=== PATIENT | male | born 1980 | race Caucasian/White ===

== ENCOUNTER 2020-06-20 13:32 | Emergency (ER) | payer MEDICARE, MEDICAID, SELFPAY ==
[2020-06-20 13:32] VITALS: BP 123/97; PULSE 181; RESP 18; TEMP 37.8; O2SAT 93
--- NOTE | 2020-06-20 13:35 | XR_ITS ---
WS: [id number] Portable AP supine chest, 06/20/2020 Clinical Data: dyspnea Comparison: Portable chest, 02/18/2015. Findings: No nodules, masses or effusions are seen. The heart is enlarged. The pulmonary vascularity is not increased. No pneumonia or pneumothorax is seen. The patient has had a fusion with bilateral H reinier rods extending from the superior aspect of the thoracic spine into the lumbar spine. There is a dextroscoliosis of the thoracic spine. Monitor leads are on the chest wall. There is an old frac ture of the lateral aspect of the right seventh rib. XR/XR chest 1V portable [id number] Impression: Cardiomegaly. No change in dextroscoliosis and thoracic and upper lumbar spine fusion.
--- NOTE | 2020-06-20 13:36 | ECG_ITS ---
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 Measurements Intervals [place] Rate: 181 P: MA: QRS: 134 QRSD: 86 T: 5 QT: 233 QTc: 404 Interpretive Statements SUPRAVENTRICULAR TACHYCARDIA POSSIBLE RIGHT VENTRICULAR HYPERTROPHY NONSPECIFIC T-WAVE ABNORMALITY CRITICAL TEST RESULT Compared to ECG 02/18/2015 08:08:43 T-wave abnormality now present Sinus rhythm no longer present Incomplete right bundle-branch block no longer present Electronically Signed On 06-20-2020 22:35:30 RURAL ROUTE MAIL CARRIER by Nikki Card M.D. [id number] f
[2020-06-20] MEDS: adenosine 3 mg/mL SDV 2mL 6 MG IVP ×2 (13:39→14:07)
--- NOTE | 2020-06-20 13:51 | CT_ITS ---
WS: [id number] CT CHEST, ABDOMEN AND PELVIS WITH CONTRAST. HISTORY: abdominal pain. aspiration pneumonia TECHNIQUE: Contiguous 5 mm axial imaging performed through the chest, abdomen and pelvis with IV cont rast, oral contrast has been provided. Coronal and sagittal reformats chest. Coronal and sagittal ref ormats through the abdomen and pelvis. All CT scans at [facility] use at least one of the se dose optimization techniques: automated exposure control; mA and/or kV adjustment per patient size (includes targeted exams where dose is matched to clinical indication); or iterative reconstruction. CONTRAST: Omnipaque 300; 95 mL IV. DLP: 2142.52 mGy.cm COMPARISON: None available. Quality of this examination is significantly limited by motion and rotation. Chest CT: Dependent changes in the lung bases. Small amount of pneumonitis cannot be excluded. No lar ge pleural effusions. Heart size may be slightly enlarged. Thoracic aorta appears normal size. Fluid- filled esophagus may be due to reflux disease. There are extensive Albright rods extending throughout the thoracic and portions of the lumbar spin e. Abdomen CT: Significant amount of artifact from the hardware. There is a small amount of pneumobilia. May be related to the prior cholecystectomy. Mild atrophy of the pancreas and kidneys. No adenopathy . Marked distention of the colon with air. This is consistent with an old pelves. There is marked fecal retention and obstipation. I cannot exclude free air with this amount of motion artifact. Pelvic CT: No obvious free fluid in the pelvis. Urinary bladder is distended. Inguinal canals are pat ent bilaterally. There is a loop of probably colon extending into the LEFT proximal inguinal canal. N o obstruction. CT/CT chest abd pel w con* IMPRESSION: 1. Quality of this examination is significantly limited. Nearly nondiagnostic evaluation. 2. Marked obstipation and findings suggestive of [place]'s syndrome. Fecal imp action with inspissated fecal material at the rectum. 3. Pneumobilia is probably related to the prior cholecystectomy. 4. Mild pneumonitis at the lung bases. No pneumonia. 5. Fluid-filled esophagus is probably from reflux disease.
[2020-06-20 14:00] LABS: Basophils % 0.4 %; Eosinophils # 0.1 10^3/uL (0.0-0.8); Eosinophils % 1.1 %; Hematocrit 40.6 % (42.0-52.0); Hemoglobin 12.5 g/dL (11.7-16.6); Lymphocytes # 1.1 10^3/uL (0.8-4.8); Lymphocytes % 11.3 %; Mean Corpuscular HGB Conc 30.8 g/dL (30.0-36.0); Mean Corpuscular Hemoglobin 25.2 pg (28.0-34.0); Mean Corpuscular Volume 81.9 fL (80-94); Mean Platelet Volume 10.8 fL (7.4-10.4); Monocytes % 11.1 %; Neutrophils # 7.11 10^3/uL (1.8-7.7); Neutrophils % 75.6 %; Nucleated Red Blood Cells % 0 %; Platelet Count 320 10^3/cmm (130-400); Red Blood Count 4.96 10^6/uL (4.1-5.3); Red Cell Distribution Width 17.1 % (12.1-15.1); White Blood Count 9.4 10^3/uL (4.0-10.0)
--- NOTE | 2020-06-20 14:02 | CT_ITS ---
WS: [id number] CT HEAD NONCONTRAST HISTORY: altered mental status TECHNIQUE: Contiguous axial imaging performed through the brain in 2.5 mm imaging. Bone and soft tiss ue windows. Sagittal and coronal reformats reviewed. All CT scans at [facility] use at ast one of these dose optimization techniques: automated exposure control; mA and/or kV adjustment pe r patient size (includes targeted exams where dose is matched to clinical indication); or iterative r econstruction. DLP: 3956.43 mGy.cm COMPARISON: None available. Limited by motion artifact. No areas of hemorrhage or mass effect. Mild bilateral frontotemporal atro phy. No large infarct. Ventricles: Normal size with no hydrocephalus. Paranasal sinuses: As visualized are clear. Mastoid air cells: Well pneumatized. Calvarium and scalp: Skull is intact with no soft tissue edema or swelling. CT/CT head wo con* [id number] IMPRESSION: 1. Quality of this examination is limited. No significant areas of hemorrhage or mass effect. 2. Mild frontotemporal lobe atrophy.
[2020-06-20 14:07] LABS: ABG PCO2 34.7 mmHg (35-45); ABG PH Result 7.41 (7.35-7.45); Arterial Blood Gas Hematocrit 36.1 % (42-52); Blood Gas Allen Test Pos; Blood Gas Operator Identificat AMH; Blood Gas Sample Site Radial, right; Blood Gas Sample Type Arterial; Carboxyhemoglobin 1.3 %THgb (0.4-20.1); HCO3 ABG 22.1 mmol/L (22-26); HGB O2 Sat 93.7 % (95-100); Methemoglobin 0.8 % (0.4-1.5); Oxygen Device ROOM AIR; PO2 ABG 77.8 mmHg (80.0-100.0); Total Hemoglobin 11.8 g/dL (14-18)
[2020-06-20] MEDS: sodium chloride 0.9% 1,000 ML 999 ML IV (14:08)
[2020-06-20 14:10] LABS: D Dimer 0.56 ug/mIFEU (0-0.59)
[2020-06-20] MEDS: adenosine 3 mg/mL SDV 2mL 12 MG IVP (14:16)
[2020-06-20 14:20] LABS: Troponin(5th) Baseline 29 ng/L (0-15)
[2020-06-20 14:29] LABS: Alanine Aminotransferase 13 U/L (0-41); Albumin Level 4.5 g/dL (3.5-5.2); Alkaline Phosphatase 111 IU/L (40-130); Anion Gap 15.6 (5-19); Aspartate Amino Transferase 16 U/L (0-40); Blood Urea Nitrogen 14 mg/dL (6-20); Calcium 9.5 mg/dL (8.5-10.5); Carbon Dioxide 23 mmol/L (22-29); Chloride 99 mmol/L (98-107); Globulin 2.9 g/dL (1.3-4.6); Glomerular Filtration Rate 106.5 mL/min (90-130); Glucose 131 mg/dL (65-115); NT Pro B Type Natriuretic Pept 193 pg/mL (0-125); Osmolality Calculated 278 mOsm/kg (285-295); Potassium 4.6 mmol/L (3.5-5.1); Sodium 133 mmol/L (136-145); Total Bilirubin 1.2 mg/dL (0.15-1.2); Total Protein 7.4 g/dL (6.6-8.7)
[2020-06-20 14:37] LABS: Lactate (Lactic Acid level) 2.8 mmol/L (0.5-2.2)
[2020-06-20] MEDS: LORazepam 2 mg/mL INJ 1 mL 0.5 MG IVP (14:40)
[2020-06-20] MEDS: iohexol 300 mg/mL 100 mL Btl IV (15:04)
--- NOTE | 2020-06-20 15:08 | ECG_ITS ---
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 Measurements Intervals [place] Rate: 124 P: 35 PA: 142 QRS: 136 QRSD: 71 T: 4 QT: 304 QTc: 437 Interpretive Statements SINUS TACHYCARDIA WITH FREQUENT VENTRICULAR PREMATURE COMPLEXES WITH OCCASIONAL SUPRAVENTRICULAR PREMATURE COMPLEXES PATTERN CONSISTENT WITH PULMONARY DISEASE POSSIBLE RIGHT VENTRICULAR HYPERTROPHY [SOME/ALL OF: PROMINENT R IN V1, LATE TRANSITION, RAD, LANDY, SSS] Compared to ECG 06/20/2020 13:33:48 Ventricular premature complex(es) now present Atrial fibrillation no longer present T-wave abnormality no longer present Electronically Signed On 06-20-2020 22:37:28 BRAILLE TEACHER by Nikki Card M.D. [id number] f
[2020-06-20] MEDS: vancomycin 1,000 MG in sodium chloride 0.9% 250 ML 250 MG IV (15:35)
--- NOTE | 2020-06-20 15:36 | ECG_ITS ---
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 Measurements Intervals [place] Rate: 178 P: RI: QRS: 138 QRSD: 76 T: 7 QT: 252 QTc: 434 Interpretive Statements SUPRAVENTRICULAR TACHYCARDIA POSSIBLE RIGHT VENTRICULAR HYPERTROPHY MINIMAL ST DEPRESSION [0.025+ mV ST DEPRESSION] CRITICAL TEST RESULT Compared to ECG 06/20/2020 13:38:55 ST (T wave) deviation now present Sinus tachycardia no longer present Ventricular premature complex(es) no longer present Electronically Signed On 06-20-2020 22:06:42 BOILER OR ENGINE OPERATOR by Nikki Card M.D. [id number]
--- NOTE | 2020-06-20 15:46 | W.ED.ARRPALP ---
HPI - Arrhythmia/Palpitations General: Chief Complaint: Arrhythmia/Palpitations Stated Complaint: WEAKNESS/ SVT Time Seen by Provider: 06/20/20 13:35 History of Present Illness: HPI narrative: The patient is a 39-year-old [place] with past medical history neurologic disease and atrial fibrillation on Xarelto. He comes to the ER after he was sent here for responding last. EMS found him to be in SVT with a rate of 180. Also a distended abdomen. He has chronic severe constipation and they gave him a laxative at the penitentiary with no effect. The patient offers no history as he is a poor historian and does not communicate with with his neurologic disease. Review of Systems General: Reports: ROS unobtainable due to mental status Physical Exam Const: COMMON NORMALS: alert EXAM LIMITATIONS: altered mental status, language barrier and physical limitations GENERAL APPEARANCE: in distress and ill appearing ORIENTATION/CONSCIOUSNESS: Yes awake HENMT: COMMON NORMALS: normocephalic, external ears normal and Normal external nose present HEAD & SCALP: normal to inspection and normocephalic NOSE: Normal external nose present EXTERNAL EAR: Yes external ears normal MOUTH: Normal oral and palatal mucosa present THROAT: posterior oropharynx normal Eye: COMMON NORMALS: Equal, round and reactive pupils present and EOMs intact bilaterally GENERAL EYE: appearance normal, both eyes and all related structures PUPIL: Yes Equal, round and reactive pupils present Neck/C-Spine: COMMON NORMALS: full ROM, no lymphadenopathy, no meningeal signs and no JVD GENERAL: Yes normal visual inspection Lymph: LYMPHATIC: no lymphadenopathy noted Chest: COMMONS NORMALS: normal inspection of the chest and normal palpation of entire chest wall Resp: COMMON NORMALS: normal respiratory effort, No retractions, No use of accessory muscles, clear to auscultation bilaterally and percussion normal EFFORT & INSPECTION: Yes able to speak in complete sentences AUSCULTATION: clear to auscultation bilaterally PERCUSSION: percussion normal Cardio: COMMON NORMALS: no JVD, regular rate, regular rhythm, S1 normal heart sound present, S2 normal heart sound present and Peripheral pulses 2+ throughout RATE: regular rate RHYTHM: regular rhythm HEART SOUNDS: S1 normal heart sound present and S2 normal heart sound present PERIPHERAL PULSES: Peripheral pulses 2+ throughout GI: OTHER: Abdomen grossly distended likely from gas. Hollow sounding with percussion. Difficult to auscultate bowel sounds with the ER noises. Grossly tender in all luque. : COMMON NORMALS: Yes no CVA tenderness BLADDER/KIDNEY EXAM: Yes no CVA tenderness Back/Pelvis: COMMON NORMALS: no CVA tenderness, thoracic and lumbar spine normal to inspection, no thoracic nor lumbar tenderness and thoraco-lumbar ROM normal Extremity: NARRATIVE EXTREMITY EXAM: Chronically contracted extremities. Moves all 4 extremities. Sensation intact in all 4. Neuro: COMMON NORMALS: moves all extremities SENSORIUM/ORIENTATION: Yes alert MENINGEAL SIGNS: Yes no meningeal signs OTHER: Chronic baseline mental disease. His power of civil litigation attorney says he is able to communicate with her. Skin: COMMON NORMALS: no rashes or lesions noted GENERAL SKIN EXAM: no rashes or lesions noted Course Vital Signs: Vital signs: Vital Signs Temperature 100.1 F H 06/20/20 13:32 Pulse Rate 181 H 06/20/20 13:32 Respiratory Rate 18 06/20/20 13:32 Blood Pressure 123/97 06/20/20 13:32 Pulse Oximetry 93 06/20/20 13:32 MDM - Arrhythmia/Palpitations MDM Narrative: Medical decision making narrative: This is a sick patient who comes to the ER in SVT. He was given 6, 6 and 12 mg of adenosine and he did convert however within minutes he was back in. Sometimes he kicks himself out of SVT. Discussed with Dr. Ceballos who recommended starting a Cardizem drip as he does have a history of A. fib. The bolus was given and his heart rate did slow to the 140s to 160s for a short time and it did appear A. fib. It is likely he is suffering from A. fib with RVR versus SVT. He does not want him cardioverted unless his systolic blood pressure drops below 90 because of the risk of throwing a clot. We do not have any ICU beds available here. Discussed with Dr. Pradhan ER physician at [facility] who accepts. Patient to be flown there Lab Data: Labs: Lab Results 06/20/20 06/20/20 06/20/20 Range/Units 13:52 13:52 13:52 WBC 9.4 (4.0-10.0) 10^3/ uL RBC 4.96 (4.1-5.3) 10^6/u L Hgb 12.5 (11.7-16.6) g/dL Hct 40.6 L (42.0-52.0) % MCV 81.9 (80-94) fL MCH 25.2 L (28.0-34.0) pg MCHC 30.8 (30.0-36.0) g/dL RDW 17.1 H (12.1-15.1) % Plt Count 320 (130-400) 10^3/c mm MPV 10.8 H (7.4-10.4) fL Neut % (Auto) 75.6 % Lymph % (Auto) 11.3 % [place] % (Auto) 11.1 % Eos % (Auto) 1.1 % Baso % (Auto) 0.4 % Neut # (Auto) 7.11 (1.8-7.7) 10^3/u L Lymph # (Auto) 1.1 (0.8-4.8) 10^3/u L [place] # (Auto) 1.0 H (0.2-0.9) 10^3/u L Eos # (Auto) 0.1 (0.0-0.8) 10^3/u L Baso # (Auto) 0.0 (0.0-0.1) 10^3/u L Nucleated RBC % (a uto) 0 % Nucleated RBCs # 0.0 /100WBC D-Dimer 0.56 (0-0.59) ug/mIFE U Specimen Type Sample Site ABG pH (7.35-7.45) ABG pCO2 (35-45) mmHg ABG pO2 (80.0-100.0) mmH g ABG HCO3 (22-26) mmol/L ABG Base Excess (-2.0-2.0) mmol/ L Aureliano Test Hematocrit (42-52) % Hgb O2 Saturation (95-100) % Carboxyhemoglobin (0.4-20.1) %THgb Methemoglobin (0.4-1.5) % Total Hemoglobin (14-18) g/dL O2 Delivery Device FiO2 % Special Education Preschool Teacher ID Sodium 133 L (136-145) mmol/L Potassium 4.6 (3.5-5.1) mmol/L Chloride 99 (98-107) mmol/L Carbon Dioxide 23 (22-29) mmol/L Anion Gap 15.6 (5-19) BUN 14 (6-20) mg/dL Creatinine 0.8 (0.7-1.2) mg/dL GFR Calculation 106.5 (90-130) mL/min Glucose 131 H (65-115) mg/dL Calculated Osmolal ity 278 L (285-295) mOsm/k g Lactate (0.5-2.2) mmol/L Calcium 9.5 (8.5-10.5) mg/dL Total Bilirubin 1.2 (0.15-1.2) mg/dL AST 16 (0-40) U/L ALT 13 (0-41) U/L Alkaline Phosphata se 111 (40-130) IU/L Troponin T Baselin e (0-15) ng/L NT-Pro-B Natriuret Pep 193 H (0-125) pg/mL Total Protein 7.4 (6.6-8.7) g/dL Albumin 4.5 (3.5-5.2) g/dL Globulin 2.9 (1.3-4.6) g/dL 06/20/20 06/20/20 06/20/20 Range/Units 13:52 13:52 13:56 WBC (4.0-10.0) 10^3/ uL RBC (4.1-5.3) 10^6/u L Hgb (11.7-16.6) g/dL Hct (42.0-52.0) % MCV (80-94) fL MCH (28.0-34.0) pg MCHC (30.0-36.0) g/dL RDW (12.1-15.1) % Plt Count (130-400) 10^3/c mm MPV (7.4-10.4) fL Neut % (Auto) % Lymph % (Auto) % [place] % (Auto) % Eos % (Auto) % Baso % (Auto) % Neut # (Auto) (1.8-7.7) 10^3/u L Lymph # (Auto) (0.8-4.8) 10^3/u L [place] # (Auto) (0.2-0.9) 10^3/u L Eos # (Auto) (0.0-0.8) 10^3/u L Baso # (Auto) (0.0-0.1) 10^3/u L Nucleated RBC % (a uto) % Nucleated RBCs # /100WBC D-Dimer (0-0.59) ug/mIFE U Specimen Type Arterial Sample Site Radial, right ABG pH 7.41 (7.35-7.45) ABG pCO2 34.7 L (35-45) mmHg ABG pO2 77.8 L (80.0-100.0) mmH g ABG HCO3 22.1 (22-26) mmol/L ABG Base Excess -2.0 (-2.0-2.0) mmol/ L Aureliano Test Pos Hematocrit 36.1 L (42-52) % Hgb O2 Saturation 93.7 L (95-100) % Carboxyhemoglobin 1.3 (0.4-20.1) %THgb Methemoglobin 0.8 (0.4-1.5) % Total Hemoglobin 11.8 L (14-18) g/dL O2 Delivery Device Room air FiO2 21.0 % Special Education Preschool Teacher ID Amh Sodium (136-145) mmol/L Potassium (3.5-5.1) mmol/L Chloride (98-107) mmol/L Carbon Dioxide (22-29) mmol/L Anion Gap (5-19) BUN (6-20) mg/dL Creatinine (0.7-1.2) mg/dL GFR Calculation (90-130) mL/min Glucose (65-115) mg/dL Calculated Osmolal ity (285-295) mOsm/k g Lactate 2.8 H (0.5-2.2) mmol/L Calcium (8.5-10.5) mg/dL Total Bilirubin (0.15-1.2) mg/dL AST (0-40) U/L ALT (0-41) U/L Alkaline Phosphata se (40-130) IU/L Troponin T Baselin e 29 H (0-15) ng/L NT-Pro-B Natriuret Pep (0-125) pg/mL Total Protein (6.6-8.7) g/dL Albumin (3.5-5.2) g/dL Globulin (1.3-4.6) g/dL Discharge Plan Discharge Patient Disposition: Xfer Other Clinical Impression: Supraventricular tachycardia, Atrial fibrillation Condition: Critical Referrals: Akbar Pérez DO [Primary Care Provider] - Coding Level of Care Code ED Washing Machine Striper for Jose Coates
[2020-06-20 15:48] LABS: Blood Urine Neg (Negative); Glucose Urine UA Norm (Normal); Ketones Urine Negative (Negative); Nitrate Urine Negative (Negative); Protein Urine Neg (Negative); Specific Gravity, Urine 1.015 (1.005-1.030); Urine Appearance Hazy (CLEAR); Urine Color Dark Yellow (Yellow); Urobilinogen Urine 1 mg/dL (Negative); pH Urine 7 (5-7)
[2020-06-20 15:49] LABS: Add Urine Microscopic? YES; Bilirubin Urine 1+ (Negative); Leukocyte Esterase Urine Negative (Negative)
[2020-06-20 16:00] LABS: Bacteria Urine TRACE /hpf; RBC Urine 0-4 /hpf (0-2); Squamous Epithelial Cell Urine 0-4 /hpf (0-5)
[2020-06-20 16:01] LABS: Add Urine Culture? No; Mucus Urine 3+ /hpf
[2020-06-20] MEDS: LORazepam 2 mg/mL INJ 1 mL 1 MG IVP (16:03)
[2020-06-20 17:19] VITALS: BP 113/84; PULSE 174; RESP 20; O2SAT 92
== END 2020-06-20 17:21 | disposition other institution (70) ==
PROVIDERS: Emergency Provider Family Medicine; PCP Internal Medicine
DX: I47.1 Supraventricular tachycardia (principal); I48.91 Unspecified atrial fibrillation
CPT/HCPCS: 36415; 36600; 70450; 71045; 71260; 74177; 80053; 81001; 82805; 83605; 83880; 84484; 85025; 85378; 87040; 87205; 93005; 96365; 96366; 96367; 96375; 96376; 99285; J0153; J2060; J3370; J3490; J7030; J7050; Q9967

== ENCOUNTER 2020-07-10 21:35 | Emergency (ER) | payer MEDICARE, MEDICAID, SELFPAY ==
[2020-07-10 21:36] VITALS: BP 117/90; PULSE 114; RESP 18; TEMP 36.4; O2SAT 94; BMI 23.1
[2020-07-10 22:11] LABS: Basophils % 0.3 %; Hematocrit 42.3 % (42.0-52.0); Lymphocytes # 0.5 10^3/uL (0.8-4.8); Lymphocytes % 3.7 %; Mean Corpuscular HGB Conc 28.4 g/dL (30.0-36.0); Mean Corpuscular Hemoglobin 25.4 pg (28.0-34.0); Mean Corpuscular Volume 89.6 fL (80-94); Mean Platelet Volume 11.1 fL (7.4-10.4); Monocytes # 0.7 10^3/uL (0.2-0.9); Monocytes % 4.6 %; Neutrophils # 13.15 10^3/uL (1.8-7.7); Neutrophils % 90.9 %; Nucleated Red Blood Cells % 0 %; Platelet Count 389 10^3/cmm (130-400); Red Blood Count 4.72 10^6/uL (4.1-5.3); Red Cell Distribution Width 18.4 % (12.1-15.1); White Blood Count 14.5 10^3/uL (4.0-10.0)
[2020-07-10] MEDS: sodium chloride 0.9% 1,000 ML 999 ML IV (22:15)
[2020-07-10] MEDS: ondansetron 2 mg/ML SDV 2 mL 4 MG IVP (22:17)
[2020-07-10 22:18] VITALS: BP 107/74; PULSE 86; RESP 19; O2SAT 92
[2020-07-10 22:24] LABS: Alanine Aminotransferase 9 U/L (0-41); Albumin Level 4.5 g/dL (3.5-5.2); Alkaline Phosphatase 108 IU/L (40-130); Anion Gap 23.3 (5-19); Aspartate Amino Transferase 19 U/L (0-40); Blood Urea Nitrogen 27 mg/dL (6-20); Calcium 9.4 mg/dL (8.5-10.5); Carbon Dioxide 16 mmol/L (22-29); Chloride 102 mmol/L (98-107); Globulin 3.5 g/dL (1.3-4.6); Glomerular Filtration Rate 73.8 mL/min (90-130); Glucose 118 mg/dL (65-115); Lipase 13 U/L (13-60); Magnesium 1.9 mg/dL (1.7-2.3); Osmolality Calculated 290 mOsm/kg (285-295); Potassium 4.3 mmol/L (3.5-5.1); Sodium 137 mmol/L (136-145); Total Bilirubin 1.3 mg/dL (0.15-1.2)
--- NOTE | 2020-07-10 22:29 | W.ED.NAVMDI ---
HPI - Nausea/Vomiting/Diarrhea General: Chief complaint: Nausea/Vomiting/Diarrhea Stated complaint: gi bleed Time Seen by Provider: 07/10/20 21:44 Source: family and other (care home) Mode of arrival: EMS Limitations: altered mental status and physical limitation History of Present Illness: HPI Narrative: 39 yo male resident of local care home. Per care home patient had N/V yesterday and also this evening. Possibly with coffee ground emesis. He john has chronic constipation. MD elicited complaint: nausea and vomiting Pertinent past history: bowel obstruction (1 month ago) Onset (ago): day(s) (yesterday and today) Description of vomiting: coffee grounds Associated nausea: Yes Location of pain: Other (patient not able to specify) Severity: similar to previous episodes Quality: other (patient not able to specify) Exacerbating factors: eating Relieving factors: none Context: anticoagulant use (on xarelto 20 mg daily) Associated symtoms: Reports altered mental status and nausea Treatment prior to arrival: none Review of Systems General: Reports: ROS unobtainable due to mental status and Other (records review, sister provides information) Const: Denies: fever(s), chills, change in appetite or change in weight Card: Reports: irregular heart rhythm (hx of irregular heart rate) Resp: Denies: dyspnea, productive cough or wheezing GI: Reports: abdominal pain (patient not able to specify), nausea, vomiting, coffee ground emesis and constipation Neuro: Reports: Slurred speech present and difficulty communicating thoughts Physical Exam Narrative: EXAM NARRATIVE: 39 yo male care home patient brought in by EMS. Const: COMMON NORMALS: no acute distress; negative for patient oriented x3, limitations, negative for healthy appearing, negative for alert and negative for well nourished EXAM LIMITATIONS: altered mental status and physical limitations GENERAL APPEARANCE: comfortable and frail appearing; not well developed and not in distress ORIENTATION/CONSCIOUSNESS: Yes Other orientation findings (patient not able to specify) HENMT: COMMON NORMALS: atraumatic; oral mucous membranes not moist (oral mucosa mildly dry) HEAD & SCALP: normal to inspection and atraumatic MOUTH: Normal oral and palatal mucosa present, tongue normal and moist mucous membranes abnormal (dry) Eye: COMMON NORMALS: Equal, round and reactive pupils present and EOMs intact bilaterally PUPIL: Yes Equal, round and reactive pupils present Neck/C-Spine: COMMON NORMALS: supple and no meningeal signs GENERAL: Yes normal visual inspection and Yes trachea midline CERVICAL SPINE: Yes cervical ROM normal, No normal cervical lordosis and No pain with cervical ROM Chest: COMMONS NORMALS: normal inspection of the chest and normal palpation of entire chest wall CHEST: Yes Symmetrical chest wall rise Resp: COMMON NORMALS: No retractions, No use of accessory muscles and clear to auscultation bilaterally; negative for normal respiratory effort (poor respiratory effort) EFFORT & INSPECTION: Yes symmetric chest movement, No respiratory distress, Yes decreased respiratory effort, No labored, No grunting, No stridor, No Actively coughing, No retractions, No uses accessory muscles and No audible wheezes AUSCULTATION: clear to auscultation bilaterally Cardio: COMMON NORMALS: regular rate and regular rhythm RATE: regular rate RHYTHM: regular rhythm GI: COMMON NORMALS: Soft to palpation and No hepatosplenomegaly present; negative for non-tender INSPECTION: No Fluid wave present AUSCULTATION: Yes Hypoactive bowel sounds present PALPATION: Yes Soft to palpation, Yes Tenderness to palpation present (GI) Details: LLQ and RLQ, Yes No hepatosplenomegaly present, No Pulsatile mass present, No Ascites present and No Rebound tenderness present PERCUSSION: dullness to percussion and no fluid wave Extremity: COMMON NORMALS: no calf tenderness Neuro: WILMER COMA SCALE: GCS not evaluated COMMON NORMALS: negative for patient oriented x3 SENSORIUM/ORIENTATION: No alert MENINGEAL SIGNS: Yes no meningeal signs and No nuccal rigidity SPEECH: abnormal speech GAIT: Yes Unable to assess gait Skin: COMMON NORMALS: no rashes or lesions noted and turgor normal GENERAL SKIN EXAM: no rashes or lesions noted, elasticity normal, turgor normal, no ecchymo, no erythema and no eschars TRAUMA: no lacerations or abrasions HAIR: normal Course Vital Signs: Vital signs: Vital Signs Temperature 97.5 F L 07/10/20 21:36 Pulse Rate 97 07/11/20 01:53 Respiratory Rate 16 07/11/20 00:13 Blood Pressure 101/76 07/11/20 00:13 Pulse Oximetry 94 07/11/20 01:53 MDM - Nausea/Vomiting/Diarrhea Lab Data: Labs: Lab Results 07/10/20 07/10/20 Range/Units 21:54 21:54 WBC 14.5 H (4.0-10.0) 10^3/ uL RBC 4.72 (4.1-5.3) 10^6/u L Hgb 12.0 (11.7-16.6) g/dL Hct 42.3 (42.0-52.0) % MCV 89.6 (80-94) fL MCH 25.4 L (28.0-34.0) pg MCHC 28.4 L (30.0-36.0) g/dL RDW 18.4 H (12.1-15.1) % Plt Count 389 (130-400) 10^3/c mm MPV 11.1 H (7.4-10.4) fL Neut % (Auto) 90.9 % Lymph % (Auto) 3.7 % [place] % (Auto) 4.6 % Eos % (Auto) 0.0 % Baso % (Auto) 0.3 % Neut # (Auto) 13.15 H (1.8-7.7) 10^3/u L Lymph # (Auto) 0.5 L (0.8-4.8) 10^3/u L [place] # (Auto) 0.7 (0.2-0.9) 10^3/u L Eos # (Auto) 0.0 (0.0-0.8) 10^3/u L Baso # (Auto) 0.0 (0.0-0.1) 10^3/u L Nucleated RBC % (a uto) 0 % Nucleated RBCs # 0.0 /100WBC Sodium 137 (136-145) mmol/L Potassium 4.3 (3.5-5.1) mmol/L Chloride 102 (98-107) mmol/L Carbon Dioxide 16 L (22-29) mmol/L Anion Gap 23.3 H (5-19) BUN 27 H (6-20) mg/dL Creatinine 1.1 (0.7-1.2) mg/dL GFR Calculation 73.8 L (90-130) mL/min Glucose 118 H (65-115) mg/dL Calculated Osmolal ity 290 (285-295) mOsm/k g Calcium 9.4 (8.5-10.5) mg/dL Magnesium 1.9 (1.7-2.3) mg/dL Total Bilirubin 1.3 H (0.15-1.2) mg/dL AST 19 (0-40) U/L ALT 9 (0-41) U/L Alkaline Phosphata se 108 (40-130) IU/L Total Protein 8.0 (6.6-8.7) g/dL Albumin 4.5 (3.5-5.2) g/dL Globulin 3.5 (1.3-4.6) g/dL Lipase 13 (13-60) U/L Discharge Plan Discharge Patient Disposition: Home Clinical Impression: Dehydration, Fecal impaction in rectum Nausea & vomiting Qualifiers: Vomiting type: unspecified Vomiting Intractability: unspecified Qualified Code(s): R11.2 - Nausea with vomiting, unspecified Condition: Stable Prescriptions: New Miralax 17 gram/dose powder 17 g PO DAILY 10 Days Qty: 850 RF: 0 ondansetron 4 mg tablet,disintegrating 4 mg PO Q6H PRN (Reason: nausea and vomiting) Qty: 10 RF: 0 No Action acetaminophen 325 mg Tablet 650 mg PO Q4H PRN (Reason: Pain) RF: 0 propylthiouracil 50 mg Tablet 50 mg PO TID RF: 0 olanzapine 5 mg Tablet 5 mg PO BEDTIME RF: 0 lorazepam 0.5 mg Tablet 0.5 mg PO Q4H PRN (Reason: Anxiety) RF: 0 Milk of Magnesia 400 mg/5 mL Suspension 30 ml PO DAILY PRN (Reason: Constipation) RF: 0 baclofen 10 mg Tablet 10 mg PO Q8H PRN (Reason: Muscle Pain) RF: 0 bisacodyl 10 mg Suppository 10 mg IN DAILY PRN (Reason: Constipation) RF: 0 metoprolol tartrate 50 mg Tablet 50 mg PO Q12H RF: 0 Fleet Enema 19-7 gram/118 mL Enema 118 ml IN DAILY PRN (Reason: Constipation) RF: 0 gabapentin 300 mg Capsule 300 mg PO BID RF: 0 omeprazole 20 mg Capsule,Delayed Release(Dr/Ec) 20 mg PO DAILY RF: 0 aspirin 81 mg Tablet,Chewable 81 mg PO DAILY RF: 0 nystatin 100,000 unit/gram Powder 1 applic TOPICAL BID RF: 0 albuterol sulfate 90 mcg/actuation Hfa Aerosol Inhaler 1 puff INHALATION Q4H PRN (Reason: Shortness Of Breath) RF: 0 Zyprexa 20 mg Tablet 20 mg PO BEDTIME RF: 0 Xarelto 20 mg Tablet 20 mg PO DAILY RF: 0 Discharge Orders: Discharge ED (Routine); Ordered 07/11/20 Ordered By: Lance Vidal Referrals: Akbar Pérez DO [Primary Care Provider] - Discharge Diet: Usual diet Discharge Activity: Resume usual activity Patient Instructions: Opioid Safety Activity Restrictions/Additional Instructions: increase fluids Coding Level of Care Code ED Plasma Table Operator for Chg Fwd Exam Comprehensive
--- NOTE | 2020-07-10 23:10 | CTR_ITS ---
PROCEDURE INFORMATION: Exam: CT Abdomen And Pelvis With Contrast Exam date and time: 07/10/2020 11:27 PM Age: 39 years old Clinical indication: Abdominal pain; Generalized; Prior surgery; Surgery type: Albright luke. Gb. ; Patient HX: Abd pain with gi bleed. History of ms. TECHNIQUE: Imaging protocol: Computed tomography of the abdomen and pelvis with contrast. Radiation optimization: All CT scans at this facility use at least one of these dose optimization techniques: automated exposure control; mA and/or kV adjustment per patient size (includes targeted exams where dose is matched to clinical indication); or iterative reconstruction. Contrast material: OMNI 300; Contrast volume: 95 ml; Contrast route: INTRAVENOUS (IV); COMPARISON: CT chest abd pel w con* 06/20/2020 3:01 PM RADIATION DOSE METRICS: Total DLP (mGy-cm): 1258.82 FINDINGS: Liver: Normal. No mass. Gallbladder and bile ducts: Cholecystectomy. No dilation of biliary system. Pneumobilia. Pancreas: Normal. No ductal dilation. Spleen: Normal. No splenomegaly. Adrenal glands: Normal. No mass. Kidneys and ureters: Normal. No hydronephrosis. Stomach and bowel: Large stool ball in the rectum. Rectal dilation up to 8.5 cm. No significant change from prior. No inflammatory bowel wall thickening. Negative for pneumatosis intestinalis. Small bowel loops are nondilated. Appendix: No evidence of appendicitis. Intraperitoneal space: No intraperitoneal fluid collection. Vasculature: Mesenteric vasculature is patent. Lymph nodes: Unremarkable. No enlarged lymph nodes. Urinary bladder: Unremarkable as visualized. Reproductive: Unremarkable as visualized. Bones/joints: Smooth rightward convex scoliosis of the thoracolumbar spine. Extensive thoracolumbar spine fusion changes. No acute osseous abnormality. No change in bones from recent prior. Soft tissues: No active abdominopelvic bleeding seen. CT/CT abdomen pelvis w con* [id number] IMPRESSION: 1. No acute pathology in the abdomen or pelvis identified. No active bleeding seen. 2. Fecal impaction of the rectum. Radiation Dose CTDIVOL = (mGy): DLP = 1258.82 (mGy-cm)
[2020-07-11 00:13] VITALS: BP 101/76; PULSE 101; RESP 16; O2SAT 97
[2020-07-11 01:53] VITALS: PULSE 97; O2SAT 94
[2020-07-11 05:59] VITALS: BP 115/63; PULSE 99; RESP 18; O2SAT 95
== END 2020-07-11 08:12 | disposition home or self-care (01) ==
PROVIDERS: Emergency Provider Emergency Medicine; PCP Internal Medicine
DX: R11.2 Nausea with vomiting, unspecified (principal); K56.41 Fecal impaction; E86.0 Dehydration; Z79.82 Long term (current) use of aspirin
CPT/HCPCS: 74177; 80053; 83690; 83735; 85025; 96361; 96374; 99283; J2405; J7030; Q9967

== ENCOUNTER 2020-07-11 15:46 | Outpatient (CLI) | payer MEDICARE, MEDICAID, SELFPAY ==
[2020-07-11 16:11] LABS: Basophils % 0.2 %; Hematocrit 36.7 % (42.0-52.0); Hemoglobin 11.1 g/dL (11.7-16.6); Lymphocytes # 1.5 10^3/uL (0.8-4.8); Lymphocytes % 16.1 %; Mean Corpuscular HGB Conc 30.2 g/dL (30.0-36.0); Mean Corpuscular Hemoglobin 25.5 pg (28.0-34.0); Mean Corpuscular Volume 84.2 fL (80-94); Mean Platelet Volume 11.3 fL (7.4-10.4); Monocytes # 0.9 10^3/uL (0.2-0.9); Monocytes % 9.3 %; Neutrophils # 7.01 10^3/uL (1.8-7.7); Neutrophils % 74.1 %; Nucleated Red Blood Cells % 0 %; Platelet Count 408 10^3/cmm (130-400); Red Blood Count 4.36 10^6/uL (4.1-5.3); Red Cell Distribution Width 18.4 % (12.1-15.1); White Blood Count 9.5 10^3/uL (4.0-10.0)
== END 2020-07-11 15:47 | disposition home or self-care (01) ==
PROVIDERS: PCP Internal Medicine; Visit Provider Internal Medicine
DX: D72.829 Elevated white blood cell count, unspecified (principal)
CPT/HCPCS: 85025

== ENCOUNTER 2021-02-19 18:41 | Emergency (ER) | payer MEDICARE, MEDICAID, SELFPAY ==
[2021-02-19 18:41] VITALS: BP 110/73; PULSE 66; RESP 15; TEMP 36.7; O2SAT 96; BMI 17.7
--- NOTE | 2021-02-19 18:49 | XRR_ITS ---
PROCEDURE INFORMATION: Exam: XR Chest Exam date and time: 02/19/2021 6:49 PM Age: 40 years old Clinical indication: Injury or trauma; Fall; Blunt trauma (contusions or hematomas); Patient HX: SOB TECHNIQUE: Imaging protocol: XR of the chest. Views: 1 view. COMPARISON: CT chest abd pel w con* 06/20/2020 3:01 PM FINDINGS: Lungs: Unremarkable. No consolidation. Pleural spaces: Unremarkable. No pleural effusion. No pneumothorax. Heart/Mediastinum: Cardiomegaly. Bones/joints: Right 7th posterior rib fracture. Surgical hardware in the spine. XR/XR chest 1V portable [id number] IMPRESSION: 1. Right 7th posterior rib fracture. 2. Surgical hardware in the spine. 3. Cardiomegaly. Radiation Dose CTDIVOL = (mGy): DLP = (mGy-cm)
--- NOTE | 2021-02-19 19:12 | ED_ITS ---
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 He is a assisted for many years he is bedbound nonverbal due to his Ralf ataxia states he had a little less responsiveness today that it concerned him and at all mild hypoxia patient's been afebrile actually had a family member arrived here and she had spoke to him and he smiled and said he states that that is his normal response definitely seems to be at his baseline currently. No injuries no falls. Review of Systems General: Reports: ROS unobtainable due to mental status Physical Exam Const: COMMON NORMALS: no acute distress and alert; negative for patient oriented x3 OTHER: bed bound and mute HENMT: COMMON NORMALS: normocephalic and atraumatic HEAD & SCALP: normocephalic and atraumatic Eye: COMMON NORMALS: Equal, round and reactive pupils present and EOMs intact bilaterally PUPIL: Yes Equal, round and reactive pupils present Neck/C-Spine: COMMON NORMALS: full ROM and supple Chest: COMMONS NORMALS: normal inspection of the chest and normal palpation of entire chest wall Resp: COMMON NORMALS: normal respiratory effort, No retractions, No use of accessory muscles and clear to auscultation bilaterally AUSCULTATION: clear to auscultation bilaterally Cardio: COMMON NORMALS: regular rate, regular rhythm and No murmurs present (Cardio) RATE: regular rate RHYTHM: regular rhythm GI: COMMON NORMALS: Normal to inspection, nondistended, normoactive bowel sounds present, Soft to palpation, non-tender and no masses PALPATION: Yes Soft to palpation Extremity: COMMON NORMALS: normal to inspection Neuro: COMMON NORMALS: negative for patient oriented x3 SENSORIUM/ORIENTATION: Yes alert Psych: COMMON NORMALS: mental status grossly normal and cooperative Skin: COMMON NORMALS: no rashes or lesions noted and no wounds GENERAL SKIN EXAM: no rashes or lesions noted Course Vital Signs: Vital signs: Vital Signs Temperature 98.0 F 02/19/21 18:41 Pulse Rate 62 02/19/21 22:59 Respiratory Rate 16 02/19/21 22:59 Blood Pressure 97/70 02/19/21 22:59 Pulse Oximetry 95 02/19/21 22:59 MDM - Altered Mental Status MDM Narrative: Medical decision making narrative: Patient presents here with spells of altered mental status has been in his baseline here work-up including head CT is normal no signs of infection or pneumonia vital signs here been stable he is stable for discharge back to assisted is to return if worsening. Lab Data: Labs: Lab Results 02/19/21 02/19/21 02/19/21 19:13 19:13 19:13 WBC 9.0 10^3/uL 10^3/ uL (4.0-10.0) RBC 5.05 10^6/uL 10^6 /uL (4.1-5.3) Hgb 15.7 g/dL g/dL (11.7-16.6) Hct 46.4 % % (42.0-52.0) MCV 91.9 fl fl (80-94) MCH 31.1 pg pg (28.0-34.0) MCHC 33.8 g/dL g/dL (30.0-36.0) RDW 14.4 % % (12.1-15.1) Plt Count 283 10^3/cmm 10^3 /cmm (130-400) MPV 10.8 fL H fL (7.4-10.4) Neut % (Auto) 64.8 % % Lymph % (Auto) 24.1 % % Barber % (Auto) 7.3 % % Eos % (Auto) 2.9 % % Baso % (Auto) 0.7 % % Neut # (Auto) 5.85 10^3/uL 10^3 /uL (1.8-7.7) Lymph # (Auto) 2.2 10^3/uL 10^3/ uL (0.8-4.8) Barber # (Auto) 0.7 10^3/uL 10^3/ uL (0.2-0.9) Eos # (Auto) 0.3 10^3/uL 10^3/ uL (0.0-0.8) Baso # (Auto) 0.1 10^3/uL 10^3/ uL (0.0-0.1) Nucleated RBC % (a uto) 0 % % Nucleated RBCs # 0.0 /100WBC /100W BC PT 13.90 SECONDS SEC ONDS (12.1-14.9) INR 1.04 (0.8-1.2) Sodium 140 mmol/L mmol/L (136-145) Potassium 4.5 mmol/L mmol/L (3.5-5.1) Chloride 104 mmol/L mmol/L (98-107) Carbon Dioxide 26 mmol/L mmol/L (22-29) Anion Gap 14.5 (5-19) BUN 10 mg/dL mg/dL (6-20) Creatinine 0.6 mg/dL L mg/dL (0.7-1.2) GFR Calculation 147.8 mL/min H mL /min (90-130) Glucose 82 mg/dL mg/dL (65-115) POC Glucose Calculated Osmolal ity 288 mOsm/kg mOsm/ kg (285-295) Lactate Calcium 9.2 mg/dL mg/dL (8.5-10.5) Total Bilirubin 1.5 mg/dL H mg/dL (0.15-1.2) AST 12 U/L U/L (0-40) ALT 9 U/L U/L (0-41) Alkaline Phosphata se 80 IU/L IU/L (40-130) Total Protein 6.8 g/dL g/dL (6.6-8.7) Albumin 4.4 g/dL g/dL (3.5-5.2) Globulin 2.4 g/dL g/dL (1.3-4.6) Urine Color Urine Appearance Urine pH Ur Specific Gravit y Urine Protein Urine Glucose (UA) Urine Ketones Urine Blood Urine Nitrate Urine Bilirubin Urine Urobilinogen Ur Leukocyte Darlene ase Urine RBC Urine WBC Ur Squamous Epith Cells Amorphous Sediment Urine Bacteria Urine Mucus 02/19/21 02/19/21 02/19/21 19:13 19:34 20:20 WBC RBC Hgb Hct MCV MCH MCHC RDW Plt Count MPV Neut % (Auto) Lymph % (Auto) Barber % (Auto) Eos % (Auto) Baso % (Auto) Neut # (Auto) Lymph # (Auto) Barber # (Auto) Eos # (Auto) Baso # (Auto) Nucleated RBC % (a uto) Nucleated RBCs # PT INR Sodium Potassium Chloride Carbon Dioxide Anion Gap BUN Creatinine GFR Calculation Glucose POC Glucose 99 mg/dL mg/dL (70-110) Calculated Osmolal ity Lactate 0.8 mmol/L mmol/L (0.5-2.2) Calcium Total Bilirubin AST ALT Alkaline Phosphata se Total Protein Albumin Globulin Urine Color Yellow (Yellow) Urine Appearance Clear (CLEAR) Urine pH 5 (5-7) Ur Specific Gravit y 1.015 (1.005-1.030) Urine Protein Neg (Negative) Urine Glucose (UA) Norm (Normal) Urine Ketones Negative (Negative) Urine Blood 2+ H (Negative) Urine Nitrate Negative (Negative) Urine Bilirubin Neg (Negative) Urine Urobilinogen Norm mg/dL mg/dL (Negative) Ur Leukocyte Darlene ase Negative (Negative) Urine RBC 10-15 /hpf H /hpf (0-2) Urine WBC 0-4 /hpf H /hpf (0-5) Ur Squamous Epith Cells 5-10 /hpf H /hpf (0-5) Amorphous Sediment Not Reportable Urine Bacteria Trace /hpf /hpf (NONE) Urine Mucus 2+ /hpf /hpf Imaging Data^: CXR: Attestation: I personally reviewed and interpreted this imaging study as follows: Radiologist's impression: [address] [address] XRay Report Signed Patient: Johnny Fournier Unit #: [id number] : 1980 Age/Sex: 40 / M ADM Date: 02/19/21 Loc: ER Room/Bed: Attending Dr: Ordering Provider/Ordering MD: Amanda Odonnell MD Date of Service: 02/19/21 Procedure(s): XR chest 1V portable [id number] Accession Number(s): [id number] Report Number: [id number] PROCEDURE INFORMATION: Exam: XR Chest Exam date and time: 02/19/2021 6:49 PM Age: 40 years old Clinical indication: Injury or trauma; Fall; Blunt trauma (contusions or hematomas); Patient HX: SOB TECHNIQUE: Imaging protocol: XR of the chest. Views: 1 view. COMPARISON: CT chest abd pel w con* 06/20/2020 3:01 PM FINDINGS: Lungs: Unremarkable. No consolidation. Pleural spaces: Unremarkable. No pleural effusion. No pneumothorax. Heart/Mediastinum: Cardiomegaly. Bones/joints: Right 7th posterior rib fracture. Surgical hardware in the spine. XR/XR chest 1V portable [id number] IMPRESSION: 1. Right 7th posterior rib fracture. 2. Surgical hardware in the spine. 3. Cardiomegaly. Radiation Dose CTDIVOL = (mGy): DLP = (mGy-cm) Dictated By: John Montero MD Signed By: John Montero MD Signed Date/Time: 02/19/212006 DD/ 48 CT Head: Radiologist's impression: [employer] [address] [address] Scan Report Signed Patient: Johnny Fournier Unit #: [id number] : 1980 Age/Sex: 40 / M ADM Date: 02/19/21 Loc: ER Room/Bed: Attending Dr: Ordering Provider/Ordering MD: Amanda Odonnell MD Date of Service: 02/19/21 Procedure(s): CT head wo con* [id number] Accession Number(s): [id number] Report Number: [id number] PROCEDURE INFORMATION: Exam: CT Head Without Contrast Exam date and time: 02/19/2021 7:36 PM Age: 40 years old Clinical indication: Altered mental status/memory loss; Patient HX: Scan x 2 PT motion; Additional info: AMS TECHNIQUE: Imaging protocol: Computed tomography of the head without contrast. Radiation optimization: All CT scans at this facility use at least one of these dose optimization techniques: automated exposure control; mA and/or kV adjustment per patient size (includes targeted exams where dose is matched to clinical indication); or iterative reconstruction. COMPARISON: CT head wo con* [id number] 06/20/2020 2:41 PM RADIATION DOSE METRICS: Total DLP (mGy-cm): 1706.56 FINDINGS: Brain: Left cerebellar chronic atrophy. Cerebral ventricles: No ventriculomegaly. Paranasal sinuses: Visualized sinuses are unremarkable. No fluid levels. Mastoid air cells: Visualized mastoid air cells are well aerated. Bones/joints: Unremarkable. No acute fracture. Soft tissues: Unremarkable. CT/CT head wo con* [id number] IMPRESSION: 1. Negative for intracranial hemorrhage or mass effect. 2. Left cerebellar chronic atrophy. Radiation Dose CTDIVOL = (mGy): DLP = 1706.56 (mGy-cm) Dictated By: John Montero MD Signed By: John Montero MD Signed Date/Time: 02/19/212007 DD/ 35 Discharge Plan Discharge Patient Disposition: Home Clinical Impression: Altered mental status Qualifiers: Altered mental status type: unspecified Qualified Code(s): R41.82 - Altered mental status, unspecified Condition: Stable Prescriptions: No Action acetaminophen 325 mg Tablet 650 mg PO Q4H PRN (Reason: Pain) RF: 0 propylthiouracil 50 mg Tablet 50 mg PO TID RF: 0 olanzapine 5 mg Tablet 5 mg PO BEDTIME RF: 0 lorazepam 0.5 mg Tablet 0.5 mg PO Q4H PRN (Reason: Anxiety) RF: 0 Milk of Magnesia 400 mg/5 mL Suspension 30 ml PO DAILY PRN (Reason: Constipation) RF: 0 baclofen 10 mg Tablet 10 mg PO Q8H PRN (Reason: Muscle Pain) RF: 0 bisacodyl 10 mg Suppository 10 mg NJ DAILY PRN (Reason: Constipation) RF: 0 metoprolol tartrate 50 mg Tablet 50 mg PO Q12H RF: 0 Fleet Enema 19-7 gram/118 mL Enema 118 ml NJ DAILY PRN (Reason: Constipation) RF: 0 gabapentin 300 mg Capsule 300 mg PO BID RF: 0 omeprazole 20 mg Capsule,Delayed Release(Dr/Ec) 20 mg PO DAILY RF: 0 aspirin 81 mg Tablet,Chewable 81 mg PO DAILY RF: 0 nystatin 100,000 unit/gram Powder 1 applic TOPICAL BID RF: 0 albuterol sulfate 90 mcg/actuation Hfa Aerosol Inhaler 1 puff INHALATION Q4H PRN (Reason: Shortness Of Breath) RF: 0 Zyprexa 20 mg Tablet 20 mg PO BEDTIME RF: 0 Xarelto 20 mg Tablet 20 mg PO DAILY RF: 0 ondansetron 4 mg tablet,disintegrating 4 mg PO Q6H PRN (Reason: nausea and vomiting) Qty: 10 RF: 0 Discharge Orders: Discharge ED (Routine); Ordered 02/19/21 Ordered By: Amanda Odonnell Referrals: Pérez,Akbar Jonatan, DO [Primary Care Provider] - 1-3 days Discharge Diet: Advance as tolerated Discharge Activity: Resume usual activity Patient Instructions: Altered Mental Status (ED) Coding Level of Care Code ED [employer] Fin[employer] 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
[2021-02-19 19:17] VITALS: BP 96/62; PULSE 66; RESP 18; O2SAT 91
[2021-02-19 19:33] LABS: Basophils # 0.1 10^3/uL (0.0-0.1); Basophils % 0.7 %; Eosinophils # 0.3 10^3/uL (0.0-0.8); Eosinophils % 2.9 %; Hematocrit 46.4 % (42.0-52.0); Hemoglobin 15.7 g/dL (11.7-16.6); Lymphocytes # 2.2 10^3/uL (0.8-4.8); Lymphocytes % 24.1 %; Mean Corpuscular HGB Conc 33.8 g/dL (30.0-36.0); Mean Corpuscular Hemoglobin 31.1 pg (28.0-34.0); Mean Corpuscular Volume 91.9 fl (80-94); Mean Platelet Volume 10.8 fL (7.4-10.4); Monocytes # 0.7 10^3/uL (0.2-0.9); Monocytes % 7.3 %; Neutrophils # 5.85 10^3/uL (1.8-7.7); Neutrophils % 64.8 %; Nucleated Red Blood Cells % 0 %; Platelet Count 283 10^3/cmm (130-400); Red Blood Count 5.05 10^6/uL (4.1-5.3); Red Cell Distribution Width 14.4 % (12.1-15.1)
[2021-02-19 19:36] LABS: Glucose Point of Care 99 mg/dL (70-110)
--- NOTE | 2021-02-19 19:36 | CTR_ITS ---
PROCEDURE INFORMATION: Exam: CT Head Without Contrast Exam date and time: 02/19/2021 7:36 PM Age: 40 years old Clinical indication: Altered mental status/memory loss; Patient HX: Scan x 2 PT motion; Additional info: AMS TECHNIQUE: Imaging protocol: Computed tomography of the head without contrast. Radiation optimization: All CT scans at this facility use at least one of these dose optimization techniques: automated exposure control; mA and/or kV adjustment per patient size (includes targeted exams where dose is matched to clinical indication); or iterative reconstruction. COMPARISON: CT head wo con* [id number] 06/20/2020 2:41 PM RADIATION DOSE METRICS: Total DLP (mGy-cm): 1706.56 FINDINGS: Brain: Left cerebellar chronic atrophy. Cerebral ventricles: No ventriculomegaly. Paranasal sinuses: Visualized sinuses are unremarkable. No fluid levels. Mastoid air cells: Visualized mastoid air cells are well aerated. Bones/joints: Unremarkable. No acute fracture. Soft tissues: Unremarkable. CT/CT head wo con* [id number] IMPRESSION: 1. Negative for intracranial hemorrhage or mass effect. 2. Left cerebellar chronic atrophy. Radiation Dose CTDIVOL = (mGy): DLP = 1706.56 (mGy-cm)
[2021-02-19 19:49] LABS: INR 1.04 (0.8-1.2)
[2021-02-19 19:57] LABS: Alanine Aminotransferase 9 U/L (0-41); Albumin Level 4.4 g/dL (3.5-5.2); Alkaline Phosphatase 80 IU/L (40-130); Anion Gap 14.5 (5-19); Aspartate Amino Transferase 12 U/L (0-40); Blood Urea Nitrogen 10 mg/dL (6-20); Calcium 9.2 mg/dL (8.5-10.5); Carbon Dioxide 26 mmol/L (22-29); Chloride 104 mmol/L (98-107); Globulin 2.4 g/dL (1.3-4.6); Glomerular Filtration Rate 147.8 mL/min (90-130); Glucose 82 mg/dL (65-115); Osmolality Calculated 288 mOsm/kg (285-295); Potassium 4.5 mmol/L (3.5-5.1); Sodium 140 mmol/L (136-145); Total Bilirubin 1.5 mg/dL (0.15-1.2); Total Protein 6.8 g/dL (6.6-8.7)
[2021-02-19] MEDS: sodium chloride 0.9% 1,000 ML 999 ML IV (19:57)
[2021-02-19 19:59] LABS: Lactate (Lactic Acid level) 0.8 mmol/L (0.5-2.2)
[2021-02-19 20:53] LABS: Glucose Urine UA Norm (Normal); Ketones Urine Negative (Negative); Protein Urine Neg (Negative); Specific Gravity, Urine 1.015 (1.005-1.030); Urine Appearance Clear (CLEAR); Urine Color Yellow (Yellow); pH Urine 5 (5-7)
[2021-02-19 20:54] LABS: Add Urine Microscopic? YES; Bacteria Urine TRACE /hpf; Bilirubin Urine Neg (Negative); Blood Urine 2+ (Negative); Leukocyte Esterase Urine Negative (Negative); Nitrate Urine Negative (Negative); Urobilinogen Urine Norm (Negative); WBC Urine 0-4 /hpf (0-5)
[2021-02-19 20:55] LABS: Add Urine Culture? No; Mucus Urine 2+ /hpf
--- NOTE | 2021-02-19 21:52 | PC.NURSE ---
Called report to Shauna at [facility]
[2021-02-19 22:59] VITALS: BP 97/70; PULSE 62; RESP 16; O2SAT 95
--- NOTE | 2021-02-19 23:08 | PC.NURSE ---
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 Per Gaye at long term she stated we don't make arrangements after hours, that is up to you how he gets back. Notified Charge nurse and primary nurse.
[2021-02-20 00:30] VITALS: BP 104/62; PULSE 62; RESP 18; TEMP 36.8; O2SAT 96
== END 2021-02-20 00:45 | disposition home or self-care (01) ==
PROVIDERS: Emergency Provider Emergency Medicine; PCP Internal Medicine
DX: R41.82 Altered mental status, unspecified (principal); Z79.82 Long term (current) use of aspirin; Z79.01 Long term (current) use of anticoagulants
CPT/HCPCS: 36416; 51701; 70450; 71045; 80053; 81001; 82962; 83605; 85025; 85610; 96360; 99283; J7030

== ENCOUNTER 2021-04-02 21:36 | Emergency (ER) | payer MEDICARE, MEDICAID, SELFPAY ==
[2021-04-02 21:38] VITALS: BP 119/87; PULSE 88; TEMP 36.2; O2SAT 98; BMI 26.6
--- NOTE | 2021-04-02 21:39 | XRR_ITS ---
PROCEDURE INFORMATION: Exam: XR Chest Exam date and time: 04/02/2021 9:39 PM Age: 40 years old Clinical indication: Cough and shortness of breath; Prior surgery; Surgery type: Gb, back; Additional info: SOB TECHNIQUE: Imaging protocol: XR of the chest. Views: 1 view. COMPARISON: CR (CHEST, ) 02/19/2021 6:59 PM FINDINGS: Lungs: Unremarkable. No consolidation. Pleural spaces: Unremarkable. No pleural effusion. No pneumothorax. Heart/Mediastinum: Unremarkable. No cardiomegaly. Bones/joints: Thoracolumbar spine posterior fusion. Thoracolumbar spine scoliosis. Gastrointestinal tract: Dilated large bowel loops in the upper abdomen. XR/XR chest 1V portable [id number] IMPRESSION: No focal acute pulmonary disease.
--- NOTE | 2021-04-02 21:40 | ECG_ITS ---
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: : 1980 Requested By: Amanda Odonnell Order Number: [id number] Reading MD: SANDRA MOCK Measurements Intervals [place] Rate: 100 P: 159 NC: 231 QRS: 173 QRSD: 67 T: 269 QT: 327 QTc: 422 Interpretive Statements SINUS TACHYCARDIA WITH FIRST DEGREE AV BLOCK WITH FREQUENT ECTOPIC PREMATURE COMPLEXES ARM LEADS REVERSED [INVERTED P AND QRS IN I] Compared to ECG 06/20/2020 15:40:17 First degree AV block now present Supraventricular tachycardia no longer present ST (T wave) deviation no longer present Electronically Signed On 04-03-2021 19:55:18 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
--- NOTE | 2021-04-02 21:57 | ED_ITS ---
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 They states that he was eating earlier and straight he aspirated he started having some wheezing and a severe cough. Patient given a breathing treatment by EMS on the way here and has had improvement patient is 97% here on room air has had no vomiting no fever patient is not verbal but I seen him multiple times in the past and he is at his baseline currently. 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 HENMT: COMMON NORMALS: normocephalic and atraumatic HEAD & SCALP: normocephalic and atraumatic Eye: COMMON NORMALS: Equal, round and reactive pupils present and EOMs intact bilaterally PUPIL: Yes Equal, round and reactive pupils present Neck/C-Spine: COMMON NORMALS: full ROM and supple Chest: COMMONS NORMALS: normal inspection of the chest and normal palpation of entire chest wall Resp: COMMON NORMALS: normal respiratory effort, No retractions and No use of accessory muscles AUSCULTATION: wheezes Cardio: COMMON NORMALS: regular rate, regular rhythm and No murmurs present (Cardio) RATE: regular rate RHYTHM: regular rhythm GI: COMMON NORMALS: Normal to inspection, nondistended, normoactive bowel sounds present, Soft to palpation, non-tender and no masses PALPATION: Yes Soft to palpation Extremity: COMMON NORMALS: normal to inspection and full ROM Neuro: COMMON NORMALS: moves all extremities and no focal motor deficits; negative for patient oriented x3 Psych: COMMON NORMALS: cooperative; negative for Normal thought process present ATTITUDE: Yes calm THOUGHT PROCESS: abnormal Skin: COMMON NORMALS: no rashes or lesions noted and no wounds GENERAL SKIN EXAM: no rashes or lesions noted Course Vital Signs: Vital signs: Vital Signs Temperature 97.2 F L 04/02/21 21:38 Pulse Rate 84 04/03/21 00:00 Respiratory Rate 17 04/03/21 00:00 Blood Pressure 99/74 04/03/21 00:00 Pulse Oximetry 94 04/03/21 00:00 MDM - General Adult MDM Narrative: Medical decision making narrative: Patient presents here with dyspnea he did have some slight wheezing when arriving its improved greatly here after breathing treatment. Patient's x-ray here shows no signs of aspiration pneumonia blood pressures been stable afebrile blood work is normal he is stable for discharge is to follow-up with PCP and return if worsening. Lab Data: Labs: Lab Results 04/02/21 04/02/21 04/02/21 21:39 22:18 22:18 WBC 6.1 10^3/uL 10^3/ uL (4.0-10.0) RBC 4.47 10^6/uL 10^6 /uL (4.1-5.3) Hgb 14.3 g/dL g/dL (11.7-16.6) Hct 41.5 % L % (42.0-52.0) MCV 92.8 fl fl (80-94) MCH 32.0 pg pg (28.0-34.0) MCHC 34.5 g/dL g/dL (30.0-36.0) RDW 14.6 % % (12.1-15.1) Plt Count 253 10^3/cmm 10^3 /cmm (130-400) MPV 10.8 fL H fL (7.4-10.4) Neut % (Auto) 59.1 % % Lymph % (Auto) 27.8 % % [place] % (Auto) 9.0 % % Eos % (Auto) 3.1 % % Baso % (Auto) 0.8 % % Neut # (Auto) 3.59 10^3/uL 10^3 /uL (1.8-7.7) Lymph # (Auto) 1.7 10^3/uL 10^3/ uL (0.8-4.8) [place] # (Auto) 0.6 10^3/uL 10^3/ uL (0.2-0.9) Eos # (Auto) 0.2 10^3/uL 10^3/ uL (0.0-0.8) Baso # (Auto) 0.1 10^3/uL 10^3/ uL (0.0-0.1) Nucleated RBC % (a uto) 0 % % Nucleated RBCs # 0.0 /100WBC /100W BC PT 23.60 SECONDS H S ECONDS (12.1-14.9) INR 2.05 H (0.8-1.2) Specimen Type Arterial Sample Site Radial, right ABG pH 7.41 (7.35-7.45) ABG pCO2 40.6 mmHg mmHg (35-45) ABG pO2 70.5 mmHg L mmHg (80.0-100.0) ABG HCO3 25.8 mmol/L mmol/ L (22-26) ABG Base Excess 1.0 mmol/L mmol/L (-2.0-2.0) Aureliano Test Pos Hematocrit 45.9 % % (42-52) O2 Delivery Device Room air Exhibition Carver ID [id number] Sodium Potassium Chloride Carbon Dioxide Anion Gap BUN Creatinine GFR Calculation Glucose Calculated Osmolal ity Lactate Calcium Total Bilirubin AST ALT Alkaline Phosphata se NT-Pro-B Natriuret Pep Total Protein Albumin Globulin 04/02/21 04/02/21 22:18 22:18 WBC RBC Hgb Hct MCV MCH MCHC RDW Plt Count MPV Neut % (Auto) Lymph % (Auto) [place] % (Auto) Eos % (Auto) Baso % (Auto) Neut # (Auto) Lymph # (Auto) [place] # (Auto) Eos # (Auto) Baso # (Auto) Nucleated RBC % (a uto) Nucleated RBCs # PT INR Specimen Type Sample Site ABG pH ABG pCO2 ABG pO2 ABG HCO3 ABG Base Excess Aureliano Test Hematocrit O2 Delivery Device Exhibition Carver ID Sodium 143 mmol/L mmol/L (136-145) Potassium 4.2 mmol/L mmol/L (3.5-5.1) Chloride 106 mmol/L mmol/L (98-107) Carbon Dioxide 21 mmol/L L mmol/ L (22-29) Anion Gap 20.2 H (5-19) BUN 15 mg/dL mg/dL (6-20) Creatinine 0.7 mg/dL mg/dL (0.7-1.2) GFR Calculation 123.7 mL/min mL/m in (90-130) Glucose 100 mg/dL mg/dL (65-115) Calculated Osmolal ity 297 mOsm/kg H mOs m/kg (285-295) Lactate 1.7 mmol/L mmol/L (0.5-2.2) Calcium 8.6 mg/dL mg/dL (8.5-10.5) Total Bilirubin 0.9 mg/dL mg/dL (0.15-1.2) AST 14 U/L U/L (0-40) ALT 11 U/L U/L (0-41) Alkaline Phosphata se 90 IU/L IU/L (40-130) NT-Pro-B Natriuret Pep 135 pg/mL H pg/mL (0-125) Total Protein 6.7 g/dL g/dL (6.6-8.7) Albumin 4.0 g/dL g/dL (3.5-5.2) Globulin 2.7 g/dL g/dL (1.3-4.6) Imaging Data^: CXR: Radiologist's impression: [address] [address] XRay Report Signed Patient: Johnny Fournier Unit #: [id number] : 1980 Age/Sex: 40 / M ADM Date: 04/02/21 Loc: ER Room/Bed: Attending Dr: Ordering Provider/Ordering MD: Amanda Odonnell MD Date of Service: 04/02/21 Procedure(s): XR chest 1V portable [id number] Accession Number(s): [id number] Report Number: [id number] PROCEDURE INFORMATION: Exam: XR Chest Exam date and time: 04/02/2021 9:39 PM Age: 40 years old Clinical indication: Cough and shortness of breath; Prior surgery; Surgery type: Gb, back; Additional info: SOB TECHNIQUE: Imaging protocol: XR of the chest. Views: 1 view. COMPARISON: CR (CHEST, ) 02/19/2021 6:59 PM FINDINGS: Lungs: Unremarkable. No consolidation. Pleural spaces: Unremarkable. No pleural effusion. No pneumothorax. Heart/Mediastinum: Unremarkable. No cardiomegaly. Bones/joints: Thoracolumbar spine posterior fusion. Thoracolumbar spine scoliosis. Gastrointestinal tract: Dilated large bowel loops in the upper abdomen. XR/XR chest 1V portable [id number] IMPRESSION: No focal acute pulmonary disease. Dictated By: Yahir Wang Signed By: Yahir Wang Signed Date/Time: 04/02/212252 DD/ 38 KUB: Radiologist's impression: [address] [address] XRay Report Signed Patient: Johnny Fournier Unit #: [id number] : 1980 Age/Sex: 40 / M ADM Date: 04/02/21 Loc: ER Room/Bed: Attending Dr: Ordering Provider/Ordering MD: Amanda Odonnell MD Date of Service: 04/02/21 Procedure(s): XR KUB 66818 Accession Number(s): [id number] Report Number: [id number] PROCEDURE INFORMATION: Exam: XR Abdomen Exam date and time: 04/02/2021 10:10 PM Age: 40 years old Clinical indication: Other: Abd distension; Prior surgery; Surgery type: Gb, back; Additional info: SOB TECHNIQUE: Imaging protocol: XR of the abdomen. Views: Frontal supine view of the abdomen. 1 View. COMPARISON: CT abdomen pelvis w con* [id number] 07/10/2020 11:49 PM FINDINGS: Gastrointestinal tract: Dilated, gas-filled diffuse bowel loops with predominantly large bowel dilation, but small-bowel dilation cannot be excluded. Moderate fecal volume in the large bowel. Bones/joints: Demineralized bones. Lumbar spine posterior fusion hardware present. XR/XR KUB [id number] IMPRESSION: Gas-filled, dilated bowel loops are abdomen and pelvis, primarily representing large bowel. Most likely colonic ileus. Dictated By: Yahir Wang Signed By: Yahir Wang Signed Date/Time: 04/02/212251 DD/ 09 EKG Data^: EKG 1: Attestation: I personally reviewed and interpreted this EKG as follows: EKG interpretation date: 04/03/21 EKG interpretation time: 00:21 Interpretation: sinus tach hr [address] or t wave abnormalities qrs 67 qtc 384 Computer generated interpretation: Chest X-Ray 04/02/21 21:39 IMPRESSION: No focal acute pulmonary disease. KUB X-Ray 04/02/21 22:10 IMPRESSION: Gas-filled, dilated bowel loops are abdomen and pelvis, primarily representing large bowel. Most likely colonic ileus. Discharge Plan Discharge Patient Disposition: Home Clinical Impression: Dyspnea Qualifiers: Dyspnea type: unspecified Qualified Code(s): R06.00 - Dyspnea, unspecified Condition: Stable Prescriptions: No Action acetaminophen 325 mg Tablet 650 mg PO Q4H PRN (Reason: Pain) RF: 0 propylthiouracil 50 mg Tablet 50 mg PO TID RF: 0 olanzapine 5 mg Tablet 5 mg PO BEDTIME RF: 0 lorazepam 0.5 mg Tablet 0.5 mg PO Q4H PRN (Reason: Anxiety) RF: 0 Milk of Magnesia 400 mg/5 mL Suspension 30 ml PO DAILY PRN (Reason: Constipation) RF: 0 baclofen 10 mg Tablet 10 mg PO Q8H PRN (Reason: Muscle Pain) RF: 0 bisacodyl 10 mg Suppository 10 mg TX DAILY PRN (Reason: Constipation) RF: 0 metoprolol tartrate 50 mg Tablet 50 mg PO Q12H RF: 0 Fleet Enema 19-7 gram/118 mL Enema 118 ml TX DAILY PRN (Reason: Constipation) RF: 0 gabapentin 300 mg Capsule 300 mg PO BID RF: 0 omeprazole 20 mg Capsule,Delayed Release(Dr/Ec) 20 mg PO DAILY RF: 0 aspirin 81 mg Tablet,Chewable 81 mg PO DAILY RF: 0 nystatin 100,000 unit/gram Powder 1 applic TOPICAL BID RF: 0 albuterol sulfate 90 mcg/actuation Hfa Aerosol Inhaler 1 puff INHALATION Q4H PRN (Reason: Shortness Of Breath) RF: 0 Zyprexa 20 mg Tablet 20 mg PO BEDTIME RF: 0 Xarelto 20 mg Tablet 20 mg PO DAILY RF: 0 baclofen 10 mg tablet RF: 0 gabapentin 300 mg capsule RF: 0 metoprolol tartrate 50 mg tablet BID RF: 0 Xarelto 20 mg tablet RF: 0 ondansetron HCl 4 mg tablet RF: 0 lorazepam 0.5 mg tablet Q4H PRN (Reason: Anxiety) RF: 0 omeprazole 20 mg capsule,delayed release(DR/EC) DAILY RF: 0 propylthiouracil 50 mg tablet BID RF: 0 trazodone 50 mg tablet RF: 0 Nyamyc 100,000 unit/gram powder TOPICAL RF: 0 risperidone 0.25 mg tablet RF: 0 tamsulosin 0.4 mg capsule PO DAILY RF: 0 ondansetron 4 mg tablet,disintegrating 4 mg PO Q6H PRN (Reason: nausea and vomiting) Qty: 10 RF: 0 Discharge Orders: Discharge ED (Routine); Ordered 04/03/21 Ordered By: Amanda Odonnell Referrals: Akbar Pérez DO [Primary Care Provider] - Discharge Diet: Advance as tolerated Discharge Activity: Resume usual activity Patient Instructions: Dyspnea (ED) Coding Level of Care Code ED Motor Scooter Mechanic for Chg Fwd Exam Comprehensive
[2021-04-02 22:04] VITALS: BP 115/95; PULSE 98; RESP 19; O2SAT 97
--- NOTE | 2021-04-02 22:10 | XRR_ITS ---
PROCEDURE INFORMATION: Exam: XR Abdomen Exam date and time: 04/02/2021 10:10 PM Age: 40 years old Clinical indication: Other: Abd distension; Prior surgery; Surgery type: Gb, back; Additional info: SOB TECHNIQUE: Imaging protocol: XR of the abdomen. Views: Frontal supine view of the abdomen. 1 View. COMPARISON: CT abdomen pelvis w con* [id number] 07/10/2020 11:49 PM FINDINGS: Gastrointestinal tract: Dilated, gas-filled diffuse bowel loops with predominantly large bowel dilation, but small-bowel dilation cannot be excluded. Moderate fecal volume in the large bowel. Bones/joints: Demineralized bones. Lumbar spine posterior fusion hardware present. XR/XR KUB [id number] IMPRESSION: Gas-filled, dilated bowel loops are abdomen and pelvis, primarily representing large bowel. Most likely colonic ileus.
[2021-04-02 22:44] LABS: Basophils # 0.1 10^3/uL (0.0-0.1); Basophils % 0.8 %; Eosinophils # 0.2 10^3/uL (0.0-0.8); Eosinophils % 3.1 %; Hematocrit 41.5 % (42.0-52.0); Hemoglobin 14.3 g/dL (11.7-16.6); Lymphocytes # 1.7 10^3/uL (0.8-4.8); Lymphocytes % 27.8 %; Mean Corpuscular HGB Conc 34.5 g/dL (30.0-36.0); Mean Corpuscular Volume 92.8 fl (80-94); Mean Platelet Volume 10.8 fL (7.4-10.4); Monocytes # 0.6 10^3/uL (0.2-0.9); Neutrophils # 3.59 10^3/uL (1.8-7.7); Neutrophils % 59.1 %; Nucleated Red Blood Cells % 0 %; Platelet Count 253 10^3/cmm (130-400); Red Blood Count 4.47 10^6/uL (4.1-5.3); Red Cell Distribution Width 14.6 % (12.1-15.1); White Blood Count 6.1 10^3/uL (4.0-10.0)
[2021-04-02 22:51] LABS: INR 2.05 (0.8-1.2)
[2021-04-02 22:58] LABS: Slide Review Slide Review Perform
[2021-04-02 23:00] LABS: Lactate (Lactic Acid level) 1.7 mmol/L (0.5-2.2)
[2021-04-02 23:03] LABS: ABG PCO2 40.6 mmHg (35-45); ABG PH Result 7.41 (7.35-7.45); Arterial Blood Gas Hematocrit 45.9 % (42-52); Blood Gas Allen Test Pos; Blood Gas Sample Site Radial, right; Blood Gas Sample Type Arterial; HCO3 ABG 25.8 mmol/L (22-26); Oxygen Device ROOM AIR; PO2 ABG 70.5 mmHg (80.0-100.0)
[2021-04-02 23:23] LABS: Alanine Aminotransferase 11 U/L (0-41); Alkaline Phosphatase 90 IU/L (40-130); Anion Gap 20.2 (5-19); Aspartate Amino Transferase 14 U/L (0-40); Blood Urea Nitrogen 15 mg/dL (6-20); Calcium 8.6 mg/dL (8.5-10.5); Carbon Dioxide 21 mmol/L (22-29); Chloride 106 mmol/L (98-107); Globulin 2.7 g/dL (1.3-4.6); Glomerular Filtration Rate 123.7 mL/min (90-130); Glucose 100 mg/dL (65-115); NT Pro B Type Natriuretic Pept 135 pg/mL (0-125); Osmolality Calculated 297 mOsm/kg (285-295); Potassium 4.2 mmol/L (3.5-5.1); Sodium 143 mmol/L (136-145); Total Bilirubin 0.9 mg/dL (0.15-1.2); Total Protein 6.7 g/dL (6.6-8.7)
[2021-04-03] VITALS: BP 99/74; PULSE 84; RESP 17; O2SAT 94
[2021-04-03 00:59] VITALS: BP 99/77; PULSE 102
[2021-04-03] MEDS: sodium chloride 0.9% 1,000 ML 999 ML IV (00:59)
[2021-04-03 01:51] VITALS: BP 95/78; PULSE 99; RESP 18; O2SAT 97
[2021-04-03 03:13] VITALS: BP 98/77; PULSE 102; RESP 18; O2SAT 96
== END 2021-04-03 03:31 | disposition home or self-care (01) ==
PROVIDERS: Emergency Provider Emergency Medicine; PCP Internal Medicine
DX: R06.00 Dyspnea, unspecified (principal); Z79.82 Long term (current) use of aspirin
CPT/HCPCS: 36600; 71045; 74018; 80053; 82803; 83605; 83880; 85025; 85610; 87040; 93005; 94640; 96360; 99284; J7030; J7611

== ENCOUNTER 2022-01-28 11:19 | Inpatient (IN) | payer MEDICARE, MEDICAID, SELFPAY ==
[2022-01-28] VITALS (8 sets, daily range): BP systolic 87–126; BP diastolic 60–94; PULSE 77–134; RESP 15–28; TEMP 36.5–37.4; O2SAT 91–97
[2022-01-28 11:37] LABS: Basophils # 0.1 10^3/uL (0.0-0.1); Basophils % 0.4 %; Eosinophils # 0.2 10^3/uL (0.0-0.8); Eosinophils % 1.6 %; Hematocrit 47.7 % (42.0-52.0); Hemoglobin 16.6 g/dL (11.7-16.6); Lymphocytes % 8.5 %; Mean Corpuscular HGB Conc 34.8 g/dL (30.0-36.0); Mean Corpuscular Hemoglobin 32.1 pg (28.0-34.0); Mean Corpuscular Volume 92.3 fl (80-94); Mean Platelet Volume 10.9 fL (7.4-10.4); Monocytes # 0.6 10^3/uL (0.2-0.9); Neutrophils # 9.61 10^3/uL (1.8-7.7); Neutrophils % 83.6 %; Nucleated Red Blood Cells % 0 %; Platelet Count 349 10^3/cmm (130-400); Red Blood Count 5.17 10^6/uL (4.1-5.3); Red Cell Distribution Width 13.6 % (12.1-15.1); White Blood Count 11.5 10^3/uL (4.0-10.0)
--- NOTE | 2022-01-28 11:50 | CT_ITS ---
WS: [id number] CT ABDOMEN AND PELVIS WITH CONTRAST HISTORY: Increasing abdominal distention. TECHNIQUE: Imaging performed of the abdomen and pelvis with IV contrast. Single phase imaging of the abdomen. Coronal and sagittal reformats are submitted. All CT scans at [facility] use at [facility] st one of these dose optimization techniques: automated exposure control; mA and/or kV adjustment per patient size (includes targeted exams where dose is matched to clinical indication); or iterative re construction. IV CONTRAST: Omnipaque 350; 95 mL IV. Oral contrast: No DLP: 581.93 mGy.cm COMPARISON: 07/10/2020 and 06/20/2020 Quality is limited by breathing motion artifact. Lower thorax: Hazy opacifications at the lung bases. Heart is normal size. No hiatal hernia. Liver/biliary system: Pneumobilia. Normal size liver. Gallbladder: Status post cholecystectomy. Pancreas: Atrophied and limited by motion. Spleen: Normal size spleen. No mass or infarct. Adrenal glands: Normal. Right kidney: Atrophy. Left kidney: Atrophy. Aorta: Mild atherosclerosis with no aneurysm. Lymphadenopathy: None. Free fluid: None. GI tract: Severe fecal impaction. Inspissated fecal material in the distal colon with a maximum trans verse diameter of 10.3 cm towards the rectum. There is marked fecal retention and air throughout the colon. Cecum measures up to 11 cm in diameter. Abdominal wall: Unremarkable abdominal wall. No hernia. Pelvis: Marked fecal impaction. Urinary bladder is moderately well distended. Bones: Posterior fusion hardware thoracolumbar spine. No destructive bone lesions. Bone graft site RI GHT ilium. CT/CT abdomen pelvis w con* [id number] IMPRESSION: 1. Massive air distention of the colon. Distention is probably due to marked f ecal impaction in the distal colon. Transverse diameter of the rectum measures up to 10.3 cm. 2. No free air is identified. 3. Prior cholecystectomy. 4. Bilateral lower lobe opacifications probably due to pneumonia or pneumoniti s. Consider aspiration pneumonia.
--- NOTE | 2022-01-28 11:59 | ED_ITS ---
HPI - General Adult General: Chief complaint: Abdominal Pain Stated complaint: ABD Pain Time Seen by Provider: 01/28/22 11:22 History of Present Illness: Patient is a 41-year-old male chronically bedbound, nonverbal at baseline presenting to the emergency room with concerns of abdominal pain. Patient is currently residing at [facility]. Since Wednesday, patient has been having diffuse abdominal pain per nursing staff. Patient will wince and grimace to palpation of the abdomen. Patient also had decreased stool output. Per nursing staff, patient did not have any diarrhea, vomiting, sick contacts, or fever. No reports of shortness of breath, abdominal pain, dysuria/hematuria/polyuria, diarrhea/melena/hematochezia. Onset: 6 days ago Duration:6 days Location:home Severity:moderate Review of Systems General: Reports: ROS unobtainable due to medical condition GI: Reports: abdominal pain (+abdominal pain and distension) and constipation PFSH ED PFSH: Medical History (Updated 01/28/22 @ 14:06 by Gene Thakur MD) Aspiration pneumonia Bedbound Chronic anticoagulation Nonverbal Traumatic injury Surgical History (Updated 01/28/22 @ 14:06 by Gene Thakur MD) Hx of cholecystectomy Social History Smoking and tobacco status: never smoked Alcohol intake: never Substance/Drug Use: never Physical Exam Const: COMMON NORMALS: alert HENMT: COMMON NORMALS: atraumatic HEAD & SCALP: atraumatic MOUTH: moist mucous membranes not abnormal Eye: COMMON NORMALS: EOMs intact bilaterally and conjunctivae normal CONJUNCTIVA: Yes conjunctivae normal Neck/C-Spine: COMMON NORMALS: full ROM and supple Resp: COMMON NORMALS: normal respiratory effort and clear to auscultation bilaterally AUSCULTATION: clear to auscultation bilaterally Cardio: COMMON NORMALS: regular rate RATE: regular rate GI: COMMON NORMALS: Soft to palpation PALPATION: Yes Soft to palpation OTHER: +Abdominal distension, mild diffuse abd TTP. NO guarding rebound, guarding, rigidity. No CVA tenderness to percussion. Neg Walker/Neg McBurney's point tenderness, no suprabupic tenderness to palpation. Extremity: COMMON NORMALS: full ROM Neuro: SENSORIUM/ORIENTATION: Yes alert MOTOR EXAM: No Abnormal motor strength present and Other motor observations present (no focal motor deficits) OTHER: Nonverbal, not able to follow commands, unable to assess neurological exam. Psych: OTHER: +unable to assess underlying psych issues due to baseline mental status Course Vital Signs: Vital signs: Vital Signs Temperature 97.7 F 01/28/22 11:21 Pulse Rate 110 H 01/28/22 11:32 Respiratory Rate 22 H 01/28/22 11:32 Blood Pressure 91/73 01/28/22 11:32 Pulse Oximetry 94 01/28/22 11:32 Oxygen Delivery Me thod 01/28/22 11:32 Oxygen Flow Rate 3 01/28/22 11:32 MDM - General Adult Medical Decision Making Patient is a 41-year-old male chronically bedbound, nonverbal at baseline presenting to the emergency room with concerns of abdominal pain for the last 6 days now worsening. On exam, patient is noted to have abdominal distention. History limited due to cognitive status. Lab work-up showed [address] on pelvis showed markedly distended air in the colon with constipation. Patient received ceftriaxone azithromycin in the ED. I have ordered a Fleet enema. Given significant constipation and baseline mental mental status and chronic bedbound status, patient will be admitted for disimpaction. Dr. Bone will follow patient. Disposition: admission Lab Data : 01/28/22 11:27 01/28/22 11:27 Radiology Impressions Abdomen/Pelvis CT 01/28/22 11:50 IMPRESSION: 1. Massive air distention of the colon. Distention is probably due to marked fecal impaction in the distal colon. Transverse diameter of the rectum measures up to 10.3 cm. 2. No free air is identified. 3. Prior cholecystectomy. 4. Bilateral lower lobe opacifications probably due to pneumonia or pneumonitis. Consider aspiration pneumonia. Laboratory Results WBC 11.5 10^3/uL (4.0-10.0) H 01/28/22 11:27 RBC 5.17 10^6/uL (4.1-5.3) 01/28/22 11:27 Hgb 16.6 g/dL (11.7-16.6) 01/28/22 11:27 Hct 47.7 % (42.0-52.0) 01/28/22 11:27 MCV 92.3 fl (80-94) 01/28/22 11:27 MCH 32.1 pg (28.0-34.0) 01/28/22 11: MCHC 34.8 g/dL (30.0-36.0) 01/28/22 11: RDW 13.6 % (12.1-15.1) 01/28/22 11:27 Plt Count 349 10^3/cmm (130-400) 01/28/22 11: MPV 10.9 fL (7.4-10.4) H 01/28/22 11:27 Neut % (Auto) 83.6 % 01/28/22 11: Lymph % (Auto) 8.5 % 01/28/22 11: [place] % (Auto) 5.0 % 01/28/22 11: Eos % (Auto) 1.6 % 01/28/22 11: Baso % (Auto) 0.4 % 01/28/22 11: Neut # (Auto) 9.61 10^3/uL (1.8-7.7) H 01/28/22 11: Lymph # (Auto) 1.0 10^3/uL (0.8-4.8) 01/28/22 11: [place] # (Auto) 0.6 10^3/uL (0.2-0.9) 01/28/22 11: Eos # (Auto) 0.2 10^3/uL (0.0-0.8) 01/28/22 11: Baso # (Auto) 0.1 10^3/uL (0.0-0.1) 01/28/22 11: Nucleated RBC % (auto) 0 % 01/28/22 11: Nucleated RBCs # 0.0 /100WBC 01/28/22 11:27 Sodium 141 mmol/L (136-145) 01/28/22 11: Potassium 4.1 mmol/L (3.5-5.1) 01/28/22 11: Chloride 102 mmol/L (98-107) 01/28/22 11: Carbon Dioxide 26 mmol/L (22-29) 01/28/22 11:27 Anion Gap 17.1 (5-19) 01/28/22 11:27 BUN 16 mg/dL (6-20) 01/28/22 11:27 Creatinine 0.9 mg/dL (0.7-1.2) 01/28/22 11:27 GFR Calculation 92.1 mL/min (90-130) 01/28/22 11:27 Glucose 89 mg/dL (65-115) 01/28/22 11:27 Calculated Osmolality 293 mOsm/kg (285-295) 01/28/22 11:27 Calcium 9.9 mg/dL (8.5-10.5) 01/28/22 11:27 Total Bilirubin 1.1 mg/dL (0.15-1.2) 01/28/22 11:27 AST 16 U/L (0-40) 01/28/22 11:27 ALT 16 U/L (0-41) 01/28/22 11:27 Alkaline Phosphatase 122 U/L (40-130) 01/28/22 11:27 Total Protein 7.8 g/dL (6.6-8.7) 01/28/22 11:27 Albumin 4.3 g/dL (3.5-5.2) 01/28/22 11:27 Globulin 3.5 g/dL (1.3-4.6) 01/28/22 11:27 Lipase 33 U/L (13-60) 01/28/22 11:27 Imaging Data Other Imaging: Radiologist's impression: [address] [address] [address] Scan Report Signed Patient: Johnny Fournier Unit #: [id number] : 1980 Age/Sex: 41 / M ADM Date: 01/28/22 Loc: ER Room/Bed: Attending Dr: Ordering Provider/Ordering MD: Adalberto Klein MD Date of Service: 01/28/22 Procedure(s): CT abdomen pelvis w con* [id number] Accession Number(s): [id number] Report Number: [id number] WS: [id number] CT ABDOMEN AND PELVIS WITH CONTRAST HISTORY: Increasing abdominal distention. TECHNIQUE: Imaging performed of the abdomen and pelvis with IV contrast.? Single phase imaging of the abdomen. Coronal and sagittal reformats are submitted.? All CT scans at [facility] use at least one of these dose optimization techniques: automated exposure control; mA and/or kV adjustment per patient size (includes targeted exams where dose is matched to clinical indication); or iterative reconstruction. IV CONTRAST: Omnipaque 350; 95 mL IV. Oral contrast: No DLP: 581.93 mGy.cm COMPARISON: 07/10/2020 and 06/20/2020 Quality is limited by breathing motion artifact. Lower thorax: Hazy opacifications at the lung bases. Heart is normal size. No hiatal hernia. Liver/biliary system: Pneumobilia. Normal size liver. Gallbladder: Status post cholecystectomy.? Pancreas: Atrophied and limited by motion. Spleen: Normal size spleen. No mass or infarct. Adrenal glands: Normal. Right kidney: Atrophy. Left kidney: Atrophy. Aorta: Mild atherosclerosis with no aneurysm. Lymphadenopathy: None. Free fluid: None. GI tract: Severe fecal impaction. Inspissated fecal material in the distal colon with a maximum transverse diameter of 10.3 cm towards the rectum. There is marked fecal retention and air throughout the colon. Cecum measures up to 11 cm in diameter. Abdominal wall: Unremarkable abdominal wall. No hernia. Pelvis: Marked fecal impaction. Urinary bladder is moderately well distended. Bones: Posterior fusion hardware thoracolumbar spine. No destructive bone lesions. Bone graft site RIGHT ilium. CT/CT abdomen pelvis w con* [id number] IMPRESSION: ? 1.? Massive air distention of the colon. Distention is probably due to marked fecal impaction in the distal colon. Transverse diameter of the rectum measures up to 10.3 cm. 2.? No free air is identified. 3.? Prior cholecystectomy. 4.? Bilateral lower lobe opacifications probably due to pneumonia or pneumonitis. Consider aspiration pneumonia. ? Dictated By: Tanya Gonzales DO Signed By: Tanya Gonzales DO Signed Date/Time: 01/28/22 1250 DD/ 1245 Discharge Plan Discharge Patient Disposition: Admitted As Inpatient Clinical Impression: Aspiration pneumonia, Constipation Condition: Stable Coding Level of Care Code ED Translator And Interpreter for Chg Fwd Exam Comprehensive
[2022-01-28 12:01] LABS: Alanine Aminotransferase 16 U/L (0-41); Albumin Level 4.3 g/dL (3.5-5.2); Alkaline Phosphatase 122 U/L (40-130); Anion Gap 17.1 (5-19); Aspartate Amino Transferase 16 U/L (0-40); Blood Urea Nitrogen 16 mg/dL (6-20); Calcium 9.9 mg/dL (8.5-10.5); Carbon Dioxide 26 mmol/L (22-29); Chloride 102 mmol/L (98-107); Globulin 3.5 g/dL (1.3-4.6); Glomerular Filtration Rate 92.1 mL/min (90-130); Glucose 89 mg/dL (65-115); Lipase 33 U/L (13-60); Osmolality Calculated 293 mOsm/kg (285-295); Potassium 4.1 mmol/L (3.5-5.1); Sodium 141 mmol/L (136-145); Total Bilirubin 1.1 mg/dL (0.15-1.2); Total Protein 7.8 g/dL (6.6-8.7)
[2022-01-28] MEDS: iohexol 350 mg/mL 100 mL Btl IV (12:33)
[2022-01-28] MEDS: cefTRIAXone 1,000 MG in sodium chloride 0.9% (plus) 50 ML 100 MG IV (13:41)
[2022-01-28] MEDS: Fleet Enema 133 mL Enema PR (13:44)
[2022-01-28] MEDS: azithromycin 500 MG in sodium chloride 0.9% 250 ML 250 MG IV (13:55)
--- NOTE | 2022-01-28 14:00 | P.HP_ITS ---
Providers/Chief Complaint Primary Care Provider: Akbar Pérez DO Chief Complaint: ABD Pain History of Present Illness Johnny Fournier is a 41 year old male who is paraplegic, came from skilled nursing for abdominal pain. In the ER he has been diagnosed with severe rectal dilation related to severe constipation. He was given enema in the ER. He has been admitted for management and evaluation of severe constipation. He has been given 1 dose of rectal enema in the ER Abdomen is distended, bowel sounds are present, patient is nonverbal at baseline Review of records He has history of Kaylee ataxia, A. fib, takes anticoagulating agent Systolic congestive heart failure Scoliosis Pseudobulbar healthy Restless leg, generalized anxiety Depression, insomnia, GERD, constipation Review of Systems General: Reports: ROS unobtainable due to medical condition Medications/Allergies Home Medications Medication Instructions Recorded Confirmed Last Taken Type acetaminophen 325 mg tablet 650 mg PO Q4H PRN Pain 06/20/20 01/28/22 06/10/20 History baclofen 10 mg tablet 10 mg PO Q8H 06/20/20 01/28/22 01/28/22 History bisacodyl 10 mg rectal suppository 10 mg [place] DAILY PRN Constipation 06/20/20 01/28/22 06/20/20 History lorazepam 0.5 mg tablet 0.5 mg PO Q4H PRN Anxiety 06/20/20 01/28/22 06/20/20 History metoprolol tartrate 50 mg tablet 50 mg PO BID 06/20/20 01/28/22 01/28/22 History nystatin 100,000 unit/gram topical 1 applic topical BID PRN Rash 06/20/20 01/28/22 06/20/20 History powder omeprazole 20 mg capsule,delayed 20 mg PO DAILY 06/20/20 01/28/22 01/28/22 History release rivaroxaban 20 mg tablet (Xarelto) 20 mg PO QPM 06/20/20 01/28/22 01/27/22 History ondansetron 4 mg disintegrating 4 mg PO Q6H PRN nausea and 07/11/20 01/28/22 Unknown Rx tablet vomiting #10 tabs tamsulosin 0.4 mg capsule 0.4 mg PO BEDTIME 04/02/21 01/28/22 01/27/22 History cholecalciferol (vitamin D3) 10 10 mcg PO DAILY 01/28/22 01/28/22 01/28/22 History mcg (400 unit) tablet (Vitamin D3) pediatric shzzqouj-btch-ain 1 tab PO DAILY 01/28/22 01/28/22 01/28/22 History (Flintstones Complete (iron) chewable tablet) risperidone 0.5 mg tablet 0.5 mg PO BEDTIME 01/28/22 01/28/22 01/27/22 History sennosides 8.6 mg tablet (senna) 8.6 mg PO BID PRN Constipation 01/28/22 01/28/22 01/28/22 History tramadol 50 mg tablet 50 mg PO Q8H PRN Pain 01/28/22 01/28/22 Unknown History triamcinolone acetonide 0.1 % 1 applic topical BID 01/28/22 01/28/22 01/27/22 History topical cream Allergies Allergy/AdvReac Type Severity Reaction Status Date / Time shellfish derived Allergy Unknown Unknown Verified 01/28/22 11:46 piperacillin [From Zosyn] Allergy Unknown Verified 01/28/22 11:46 tazobactam [From Zosyn] Allergy Unknown Verified 01/28/22 11:46 PFSH Acute PFSH: Medical History (Updated 01/28/22 @ 14:06 by Gene Thakur MD) Aspiration pneumonia Bedbound Chronic anticoagulation Nonverbal Traumatic injury Surgical History (Updated 01/28/22 @ 14:06 by Gene Tahkur MD) Hx of cholecystectomy Family History (Updated 01/28/22 @ 15:40 by Gene Thakur MD) Denies family history of CAD (coronary artery disease) Social History Smoking and tobacco status: never smoked Alcohol intake: never Substance/Drug Use: never Vitals/I&O/Wt Last Vital Signs Temp 97.7 F 01/28/22 11:21 Pulse 110 H 01/28/22 11:32 Resp 22 H 01/28/22 11:32 BP 91/73 01/28/22 11:32 Pulse Ox 94 01/28/22 11:32 O2 Del Method 01/28/22 11:32 O2 Flow Rate 3 01/28/22 11:32 Weight last 48 hrs Weight 72.575 kg Physical Exam Narrative: Patient is laying supine Nonverbal Neuro exam is limited Not able to follow commands Abdomen distended, bowel sound present Abdomen is distended, no facial grimacing when I pressed his abdomen Lower extremity muscles atrophy Currently on 2 L of oxygen Hemodynamically stable Sinus tachycardia Data : 01/29/22 05:30 01/29/22 05:30 A&P Assessment and plan (1) Constipation: Plan Severe constipation Rectal measurement up to 10.3 cm Massive air distention No free air We will consult general surgery, he might need disimpaction under anesthesia We will give him Reglan and Zofran Keep him n.p.o. Avoid DVT prophylaxis for now in case for any intervention This is also causing bladder distention Aggressive fluid hydration Full code Attestations Medical Necessity Statement*: Less than 2 midnights anticipated for management of severe constipation Time Spent in Patient Care: 40 Coding Level of Care Code Acute Senior Licensing Manager for Jose Coates Diagnoses Constipation K59.00
[2022-01-28 18:31] LABS: Thyroid Stimulating Hormone 1.71 uIU/mL (0.27-4.20)
[2022-01-28] MEDS: dextrose 5%-sod chloride 0.9% 1,000 ML 75 ML IV (18:46)
[2022-01-28] MEDS: metoclopramide 5 mg/mL SDV 2 mL IVP (19:13)
[2022-01-28] MEDS: glycerin adult supp 1 EACH PR (20:56)
[2022-01-29] VITALS (10 sets, daily range): BP systolic 81–131; BP diastolic 53–79; PULSE 68–109; RESP 14–22; TEMP 36.3–36.8; O2SAT 94–100
--- NOTE | 2022-01-29 02:24 | PC.NURSE ---
O2 was checked and at 85%, Oxygen was placed and finally reached 93% at 4 L.
[2022-01-29 05:44] LABS: Basophils # 0.1 10^3/uL (0.0-0.1); Basophils % 0.4 %; Eosinophils # 0.3 10^3/uL (0.0-0.8); Eosinophils % 2.9 %; Hematocrit 36.6 % (42.0-52.0); Hemoglobin 12.3 g/dL (11.7-16.6); Lymphocytes # 1.4 10^3/uL (0.8-4.8); Lymphocytes % 12.8 %; Mean Corpuscular HGB Conc 33.6 g/dL (30.0-36.0); Mean Corpuscular Hemoglobin 32.5 pg (28.0-34.0); Mean Corpuscular Volume 96.6 fl (80-94); Mean Platelet Volume 10.7 fL (7.4-10.4); Monocytes # 0.9 10^3/uL (0.2-0.9); Monocytes % 7.6 %; Neutrophils # 8.54 10^3/uL (1.8-7.7); Neutrophils % 75.8 %; Nucleated Red Blood Cells % 0 %; Platelet Count 220 10^3/cmm (130-400); Red Blood Count 3.79 10^6/uL (4.1-5.3); Red Cell Distribution Width 14.2 % (12.1-15.1); White Blood Count 11.3 10^3/uL (4.0-10.0)
[2022-01-29 06:11] LABS: Blood Urea Nitrogen 11 mg/dL (6-20); C Reactive Protein 103.4 mg/L (0.0-4.9); Calcium 8.3 mg/dL (8.5-10.5); Carbon Dioxide 23 mmol/L (22-29); Chloride 110 mmol/L (98-107); Glucose 97 mg/dL (65-115); Magnesium 1.9 mg/dL (1.7-2.3); Osmolality Calculated 291 mOsm/kg (285-295); Sodium 141 mmol/L (136-145)
[2022-01-29 06:16] LABS: Anion Gap 11.7 (5-19); Potassium 3.7 mmol/L (3.5-5.1)
[2022-01-29] MEDS: dextrose 5%-sod chloride 0.9% 1,000 ML 75 ML IV (09:09)
[2022-01-29] MEDS: lactated ringers 1,000 ML 999 ML IV (09:15)
--- NOTE | 2022-01-29 10:31 | PC.CHAP ---
Pastoral Care Encounter/Spiritual Assessment Type of Contact [] Declined steam tender visit [] Patient/Family/Request visit [] Outpatient visit [] Follow-up visit [] Physician referral [] Code/Alert [] Routine visit [] Staff referral [] Actively dying [] Patient sleeping [] Family support [] [] Out of room [] Palliative care [] [] Receiving care in room [] Pre-surgical visit [] Trauma [] Long length of stay [] ICU visit [x] Other: Isolation Relational/Emotional Strength [] Patient feels connected with others/family/visitors/staff [] Distress [] Loneliness/isolation [] Abandonment Spirituality of Patient [] Person of Marleen [] Attends Amish of their Marleen [] Believes in Prayer [] Reads Bible or Orthodox materials [] There are Spiritual issues to be addressed Bail Bonding Agent Interventions [] Prayer [] Active listening [] Non-anxious presence [] Spiritual/emotional support [] Crisis/trauma care [] Spiritual counseling [] Bereavement support [] Provided bereavement packet [] Provided Bible/devotional materials [] Provided toy/stuffed animal, coloring book to patient or family member [] Provided Communion [] Anointing/[place] [] Salvation [] Completed spiritual assessment [] Other: Impact on Illness or Injury [] Angry [] Fearful [] Anxious [] Often cries [] Exhaustion [] Unable to work [] Unable to attend presybeterian [] Unable to walk/stand [] Unable to read [] Unable to drive [] Unable to eat/drink [] Unable to sleep [] Unable to be with family [] Patient intubated [] Other: Summary Isolation Time spent with patient 5 mins
--- NOTE | 2022-01-29 10:34 | P.PN_ITS ---
Subjective Subjective: Has not responded well to enema Will do manual disimpaction today Is getting IV fluids Afebrile He is not requiring oxygen He is on room air at the time of my evaluation Vitals/I&O/Wt Last Vital Signs Temp 97.8 F 01/29/22 07:48 Pulse 92 01/29/22 07:52 Resp 16 01/29/22 07:52 BP 97/62 01/29/22 07:48 Pulse Ox 99 01/29/22 07:52 O2 Del Method 01/29/22 07:52 O2 Flow Rate 3 01/29/22 07:52 01/28/22 01/29/22 01/29/22 22:59 06:59 14:59 Intake Total 300 / 300 1000 / 1000 Balance 300 / 300 1000 / 1000 Weight last 48 hrs Weight 72.575 kg Physical Exam Narrative: Abdominal exam revealed distended abdomen, soft, bowel sounds hyperactive, Currently he is on room air Nonverbal Quadriplegic No signs of cellulitis of skin Patient does not make eye contact however he opens his eyes when I call his name Does not seem to be any kind of respiratory distress S1, S2 Data : 01/29/22 05:30 01/29/22 05:30 A&P Assessment and plan (1) Fecal impaction in rectum: (2) Constipation: (3) Nausea & vomiting: (4) Hypokalemia: Plan Fecal impaction rectum We might be able to discharge him after manual disimpaction Continue IV fluids Potassium repleted Attestations Medical Necessity Statement*: Discharge today after disimpaction Time Spent in Patient Care: 30 Coding Level of Care Code Acute Clerical Administrative Assistant for Jose Coates Diagnoses Fecal impaction in rectum K56.41 Constipation K59.00 Nausea & vomiting R11.2 Hypokalemia E87.6
[2022-01-29] MEDS: glycerin adult supp 1 EACH PR (11:38)
[2022-01-29] MEDS: lidocaine 1% 5 ML in potassium chloride premix 100 ML 25 ML IV (11:38)
--- NOTE | 2022-01-29 12:14 | ECG_ITS ---
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 Measurements Intervals [place] Rate: 127 P: MS: QRS: 159 QRSD: 73 T: 29 QT: 251 QTc: 365 Interpretive Statements ATRIAL FLUTTER/TACHYCARD WITH RAPID VENTRICULAR RESPONSE PATTERN CONSISTENT WITH PULMONARY DISEASE RIGHT VENTRICULAR HYPERTROPHY ST ELEVATION CONSISTENT WITH INJURY, PERICARDITIS, OR EARLY REPOLARIZATION [ST ELEVATION W/O NORMALLY INFLECTED T-WAVE] Compared to ECG 04/03/2021 00:21:09 Right ventricular hypertrophy now present Atrial abnormality now present ST (T wave) deviation now present Early repolarization now present Sinus tachycardia no longer present First degree AV block no longer present Electronically Signed On 01-30-2022 16:32:15 CDT by Galileo Schmid M.D. [email or web address] network [email or web address]/NU/[id number] f
--- NOTE | 2022-01-29 12:21 | P.CONIM_ITS ---
Providers/Reason For Consult Consulting Physician/Specialty*: Dr. Meño Bone, DO/General surgery Reason for Consult*: Fecal impaction Attending Physician: Gene Thakur MD Primary Care Provider: Akbar Pérez DO History of Present Illness History of Present Illness Johnny Fournier is a 41 year old male paraplegic who lives. He was found to have some abdominal distention and was sent to the ER. While in the ER he was found to have fecal impaction with some degree of bowel obstruction, however there is air in the rectum. A fleets enema was performed in the ER without resolution. No one has attempted fecal disimpaction. Patient is nonverbal therefore H&P and review of systems are limited. Review of Systems General: Reports: ROS unobtainable due to medical condition Medications/Allergies Home Medications Medication Instructions Recorded Confirmed Last Taken Type acetaminophen 325 mg tablet 650 mg PO Q4H PRN Pain 06/20/20 01/28/22 06/10/20 History baclofen 10 mg tablet 10 mg PO Q8H 06/20/20 01/28/22 01/28/22 History bisacodyl 10 mg rectal suppository 10 mg [place] DAILY PRN Constipation 06/20/20 01/28/22 06/20/20 History lorazepam 0.5 mg tablet 0.5 mg PO Q4H PRN Anxiety 06/20/20 01/28/22 06/20/20 History metoprolol tartrate 50 mg tablet 50 mg PO BID 06/20/20 01/28/22 01/28/22 History nystatin 100,000 unit/gram topical 1 applic topical BID PRN Rash 06/20/20 01/28/22 06/20/20 History powder omeprazole 20 mg capsule,delayed 20 mg PO DAILY 06/20/20 01/28/22 01/28/22 History release rivaroxaban 20 mg tablet (Xarelto) 20 mg PO QPM 06/20/20 01/28/22 01/27/22 History ondansetron 4 mg disintegrating 4 mg PO Q6H PRN nausea and 07/11/20 01/28/22 Unknown Rx tablet vomiting #10 tabs tamsulosin 0.4 mg capsule 0.4 mg PO BEDTIME 04/02/21 01/28/22 01/27/22 History cholecalciferol (vitamin D3) 10 10 mcg PO DAILY 01/28/22 01/28/22 01/28/22 History mcg (400 unit) tablet (Vitamin D3) pediatric rxkgtawx-onku-gnd 1 tab PO DAILY 01/28/22 01/28/22 01/28/22 History (Flintstones Complete (iron) chewable tablet) risperidone 0.5 mg tablet 0.5 mg PO BEDTIME 01/28/22 01/28/22 01/27/22 History sennosides 8.6 mg tablet (senna) 8.6 mg PO BID PRN Constipation 01/28/22 01/28/22 01/28/22 History tramadol 50 mg tablet 50 mg PO Q8H PRN Pain 01/28/22 01/28/22 Unknown History triamcinolone acetonide 0.1 % 1 applic topical BID 01/28/22 01/28/22 01/27/22 History topical cream Allergies Allergy/AdvReac Type Severity Reaction Status Date / Time shellfish derived Allergy Unknown Unknown Verified 01/28/22 11:46 piperacillin [From Zosyn] Allergy Unknown Verified 01/28/22 11:46 tazobactam [From Zosyn] Allergy Unknown Verified 01/28/22 11:46 Current Medications Generic Name Dose Route Start Last Admin Trade Name Freq PRN Reason Stop Dose Admin Glycerin 1 each 01/28/22 17:32 01/29/22 11:38 Glycerin Adult Supp [place] 1 each DAILY ISAAC Administration Dextrose/Sodium Chloride 1,000 mls @ 75 mls/hr 01/28/22 18:30 01/29/22 11:46 Dextrose 5%-Sod Chloride 0.9% IV 75 mls/hr .[id number] ISAAC Infusion Lidocaine HCl 5 ml/ Potassium 105 mls @ 25 mls/hr 01/29/22 10:37 01/29/22 11:38 Chloride IV 01/29/22 14:48 25 mls/hr ONCE ONE Administration Lactulose 20 gm 01/28/22 17:32 01/29/22 09:10 Lactulose Oral Liq 20 Gm/30 Ml Udc PO Not Given Q8H ISAAC Senna/Docusate Sodium 1 tab 01/29/22 09:00 01/29/22 09:10 Sennosides-Docusate Tablet PO Not Given DAILY ISAAC PFSH Acute PFSH: Medical History Aspiration pneumonia Bedbound Chronic anticoagulation Nonverbal Traumatic injury Surgical History Hx of cholecystectomy Family History Denies family history of CAD (coronary artery disease) Social History Smoking and tobacco status: never smoked Alcohol intake: never Substance/Drug Use: never Vitals/I&O/Wt Last Vital Signs Temp 97.5 F L 01/29/22 12:00 Pulse 109 H 01/29/22 12:00 Resp 16 01/29/22 12:00 BP 131/72 01/29/22 12:00 Pulse Ox 97 01/29/22 12:00 O2 Del Method 01/29/22 12:00 O2 Flow Rate 3 01/29/22 07:52 01/28/22 01/29/22 01/29/22 22:59 06:59 14:59 Intake Total 300 / 300 2120 / 2120 Balance 300 / 300 2120 / 2120 Weight last 48 hrs Weight 160 lb Physical Exam Narrative: General : Patient is well developed Head : Normal cephalic, Ears : Pinnae and external canal are normal. Eyes : Sclera and injection are normal. No conjunctival discharge. Nose : Mucous membranes are without erythema. Throat : buccal mucosa is normal, gums are without significant recession or hypertrophy. Lungs : Equal chest rise bilaterally, no use of accessory muscles, trachea is midline. Cor : Rate and rhythm are normal. Abdomen : Soft, mildly distended, NT, no g/r/m Extremities : No edema, no cyanosis or clubbing, dorsalis pedis pulses are present bilaterally, non-tender to palpation of calves. Upper extremities are normal bilaterally. Data : 01/29/22 05:30 01/29/22 05:30 A&P Assessment and plan (1) Fecal impaction in rectum: Plan Nursing was beginning to disimpaction when I saw the patient No acute surgical intervention Medical management per primary Coding Level of Care Code Acute Exhibition Organiser for [facility] Fwd Diagnoses Fecal impaction in rectum K56.41
[2022-01-29] MEDS: dilTIAZem 5 mg/mL SDV 5 mL 10 MG IVP (12:23)
--- NOTE | 2022-01-29 12:30 | ECG_ITS ---
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 Measurements Intervals [place] Rate: 131 P: MD: QRS: 152 QRSD: 75 T: -16 QT: 300 QTc: 444 Interpretive Statements ATRIAL FLUTTER WITH RAPID VENTRICULAR RESPONSE PATTERN CONSISTENT WITH PULMONARY DISEASE RIGHT VENTRICULAR HYPERTROPHY Compared to ECG 04/03/2021 00:21:09 Atrial abnormality now present Right ventricular hypertrophy now present Sinus tachycardia no longer present First degree AV block no longer present Electronically Signed On 01-29-2022 21:00:03 CDT by Nikki Card M.D. [email or web address] memorial [email or web address] [email or web address] hospital.[employer]/store/[id number]
[2022-01-29] MEDS: morphine 4 mg/mL SDV 1 mL 2 MG IVP ×2 (13:09→13:13)
[2022-01-29 13:11] LABS: Troponin(5th) Baseline 22 ng/L (0-15)
--- NOTE | 2022-01-29 13:42 | XRR_ITS ---
PROCEDURE INFORMATION: Exam: XR Abdomen Exam date and time: 01/29/2022 5:27 PM Age: 41 years old Clinical indication: Constipation; Additional info: Fecal impaction TECHNIQUE: Imaging protocol: Radiologic exam of the abdomen. Views: Frontal supine view of the abdomen. 1 View. COMPARISON: CT abdomen pelvis w con* [id number] 01/28/2022 12:25 PM FINDINGS: Gastrointestinal tract: Severe colonic stool burden with gaseous distention of the small bowel loops. Bones/joints: Partially visualized posterior spinal fusion device noted in the thoracolumbar spine. Visualized osseous structures are intact. XR/XR KUB portable [id number] IMPRESSION: Severe colonic stool burden with gaseous distention of the small bowel loops.
[2022-01-29] MEDS: lactulose oral liq 20 gm/30 mL UDC 200 GM PR (13:43)
[2022-01-29 16:01] LABS: Troponin 5 2HR 24.93 ng/L (0-15)
[2022-01-29 16:02] LABS: Troponin 5 2HR Delta 2.93 ABS# (0-10)
[2022-01-29] MEDS: lactulose oral liq 20 gm/30 mL UDC PO (17:59)
--- NOTE | 2022-01-29 18:23 | ECG_ITS ---
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 Measurements Intervals [place] Rate: 101 P: [place]: QRS: 157 QRSD: 72 T: -30 QT: 317 QTc: 412 Interpretive Statements ATRIAL FLUTTER/TACHYCARDIA WITH RAPID VENTRICULAR RESPONSE WITH ABERRANT CONDUCTION OR VENTRICULAR PREMATURE COMPLEXES PATTERN CONSISTENT WITH PULMONARY DISEASE POSSIBLE RIGHT VENTRICULAR HYPERTROPHY [SOME/ALL OF: PROMINENT R IN V1, LATE TRANSITION, RAD, LANDY, SSS] Compared to ECG 01/29/2022 12:30:05 Ventricular premature complex(es) now present Aberrant conduction of supraventricular beat(s) now present Electronically Signed On 01-30-2022 6:34:23 CDT by Nikki Card M.D. [email or web address] [email or web address] Internationalohiohealth nelson[facility] center.[employer]/store/OM/[id number]
[2022-01-29 20:05] LABS: Troponin 5 6HR 26.76 ng/L (0-15)
[2022-01-29 20:06] LABS: Troponin 5 6HR Delta 4.76 ng/L (0-12)
[2022-01-30] VITALS (11 sets, daily range): BP systolic 102–122; BP diastolic 60–81; PULSE 64–156; RESP 15–20; TEMP 36.5–37.1; O2SAT 92–98
[2022-01-30] MEDS: lactulose oral liq 20 gm/30 mL UDC PO ×3 (01:18→17:43)
[2022-01-30] MEDS: dextrose 5%-sod chloride 0.9% 1,000 ML 75 ML IV ×2 (05:29→17:44)
[2022-01-30 06:48] LABS: Add Urine Microscopic? NO; Charge for UA Resulting for Rev
[2022-01-30 07:02] LABS: Bilirubin Urine 1+ (Negative); Blood Urine Neg (Negative); Glucose Urine UA Norm (Normal); Ketones Urine 1+ (Negative); Leukocyte Esterase Urine Negative (Negative); Nitrate Urine Negative (Negative); Protein Urine Neg (Negative); Urine Appearance Clear (CLEAR); Urine Color Yellow (Yellow); Urobilinogen Urine 1 mg/dL (Negative); pH Urine 5 (5-7)
[2022-01-30] MEDS: glycerin adult supp 1 EACH PR (08:14)
[2022-01-30] MEDS: methylnaltrexone 12 /0.6 mL INJ 12 MG SUBCUT (08:14)
[2022-01-30] MEDS: metoclopramide 5 mg/mL SDV 2 mL IVP (08:14)
[2022-01-30] MEDS: sennosides-docusate Tablet 1 TAB PO (08:15)
--- NOTE | 2022-01-30 10:12 | P.PN_ITS ---
Subjective Subjective: Patient was disimpacted manually yesterday - hard pellets of stool removed disimpaction was stopped when I was not able to feel any pellets of stool Today KUB showing small bowel stool burden Decision was made to insert NG tube and give him GoLytely for next 8 hours Vitals/I&O/Wt Last Vital Signs Temp 97.9 F 01/30/22 08:00 Pulse 97 01/30/22 08:00 Resp 18 01/30/22 08:00 BP 113/73 01/30/22 08:00 Pulse Ox 96 01/30/22 08:00 O2 Del Method 01/30/22 08:00 O2 Flow Rate 3 01/29/22 07:52 01/29/22 01/30/22 01/30/22 22:59 06:59 14:59 Intake Total 453.75 / 2573.75 561.25 / 3135.00 0 / 0 Output Total 200 / 200 Balance 453.75 / 2573.75 361.25 / 2935.00 0 / 0 Weight last 48 hrs Weight 62.188 kg Weight 72.575 kg Physical Exam Narrative: Patient is doing supine Nonverbal Quadriplegic He does move his upper extremities not purposefully Does not make eye contact Incoherent Opens eyes Abdomen soft Bowel sound present Signs of dehydration improving Data : 01/29/22 05:30 01/29/22 05:30 A&P Assessment and plan (1) Fecal impaction in rectum: (2) Constipation: Plan Gaseous distention of small bowel Fecal impaction He was disimpacted 01/29 We will put NG tube and give him GoLytely for next 8 to 10 hours He will be discharged most likely over the weekend Speech therapy has been requested who recommended level 5 dysphagia diet I will keep him n.p.o. for now Continue IV fluids DNR/DNI Family was updated yesterday Attestations Medical Necessity Statement*: Discharge over the week Time Spent in Patient Care: 30 Coding Level of Care Code Acute Satellite Installation Technician for [employer] Fwd Diagnoses Fecal impaction in rectum K56.41 Constipation K59.00
--- NOTE | 2022-01-30 10:20 | P.PN_ITS ---
Subjective Subjective: Patient seen and examined. No emesis. Disimpaction occurred yesterday. No grimace to abdominal exam. Vitals/I&O/Wt Last Vital Signs Temp 97.9 F 01/30/22 08:00 Pulse 97 01/30/22 08:00 Resp 18 01/30/22 08:00 BP 113/73 01/30/22 08:00 Pulse Ox 96 01/30/22 08:00 O2 Del Method 01/30/22 08:00 O2 Flow Rate 3 01/29/22 07:52 01/29/22 01/30/22 01/30/22 22:59 06:59 14:59 Intake Total 453.75 / 2573.75 561.25 / 3135.00 0 / 0 Output Total 200 / 200 Balance 453.75 / 2573.75 361.25 / 2935.00 0 / 0 Weight last 48 hrs Weight 137 lb 1.6 oz Weight 160 lb Physical Exam Narrative: General: No acute distress Abdomen: Soft, mildly distended, nontender Data : 01/29/22 05:30 01/29/22 05:30 A&P Assessment and plan (1) Constipation: Plan Recommend NG tube placement with GoLytely drip. 1 gallon to be infused over 8 hours. Okay with regular diet Medical management per hospitalist No acute surgical intervention Attestations Medical Necessity Statement*: Further hospitalization per hospitalist Coding Level of Care Code Acute Client Care Representative for g Fwd Diagnoses Constipation K59.00
--- NOTE | 2022-01-30 10:54 | XR_ITS ---
WS: [id number] Portable chest and upper abdomen, 01/30/2022 Clinical Data: ng placement Comparison: Portable abdomen, 01/29/2022 Findings: A nasogastric tube appears to end within the stomach. The patient has an extensive thoracolumbar post erior fusion with connecting rods for scoliosis treatment. The heart and lungs show no acute change. Monitor leads are on the chest wall.
--- NOTE | 2022-01-30 11:00 | XR_ITS ---
WS: [id number] Portable chest and upper abdomen, 01/30/2022 Clinical Data: ng placement Comparison: Portable abdomen, 01/29/2022 Findings: A nasogastric tube appears to end within the stomach. The patient has an extensive thoracolumbar post erior fusion with connecting rods for scoliosis treatment. The heart and lungs show no acute change. Monitor leads are on the chest wall. XR/XR chest 1V portable [id number] Impression: Nasogastric tube probably ends in fundus of the stomach.
[2022-01-30] MEDS: peg /e-lyte soln 4,000 mL Btl 1500 ML NG-TUBE (12:03)
--- NOTE | 2022-01-30 13:43 | PC.NURSE ---
Patient's heart rate has been [address] Thakur he is putting order in for cardizem. Charted blood pressure and heart rate.
[2022-01-30] MEDS: dilTIAZem 5 mg/mL SDV 5 mL IVP (14:00)
--- NOTE | 2022-01-30 15:25 | PC.NURSE ---
01/29/2022: PT HAD AN ALRIGHT MORNING FOR THIS NURSE. AT AROUND 1200 NOON YESTERDAY PTS HEART RATE CONVERTED INTO AFIB AND HIS RATE HAD INCREASED BETWEEN 119-160. DR HUFFMAN WAS NOTIFIED BY THIS NURSE OF THE INCIDENT. ORDERS TO OBTAIN AN EKG AT TIME OF INCIDENT AND 15 MINUTES LATER WERE GIVEN WELL AN ORDER TO GIVE 5MG IVP OF CARDIZEM WERE GIVEN. EKGS OBTAINED AND CARDIZEM WAS GIVEN. PT RESPONDED TO CARDIZEM PUSH FOR A BIT. PTS HEART RATE INCREASED AGAIN A COUPLE HOURS LATER AND DR HUFFMAN WAS NOTIFIED. NO NEW ORDERS AT THAT TIME. CONTINUED TO MONITOR PT.
--- NOTE | 2022-01-30 15:33 | PC.NURSE ---
Notified Dr. Thakur of patients heart rate up of 156-160. Dr. Thakur verbally orded Cardizem to be turned up to 10 mg/hr. Also stated he has had 500 of the go-lytely and is very agitated.
[2022-01-31] VITALS (8 sets, daily range): BP systolic 104–131; BP diastolic 72–84; PULSE 79–107; RESP 15–17; TEMP 36.5–37; O2SAT 92–97
[2022-01-31] MEDS: lactulose oral liq 20 gm/30 mL UDC PO ×2 (01:09→17:37)
[2022-01-31 06:06] LABS: Anion Gap 13.7 (5-19); Blood Urea Nitrogen 3 mg/dL (6-20); Calcium 8.4 mg/dL (8.5-10.5); Carbon Dioxide 22 mmol/L (22-29); Chloride 101 mmol/L (98-107); Glomerular Filtration Rate 181.5 mL/min (90-130); Glucose 110 mg/dL (65-115); Osmolality Calculated 273 mOsm/kg (285-295); Potassium 3.7 mmol/L (3.5-5.1); Sodium 133 mmol/L (136-145)
[2022-01-31] MEDS: dextrose 5%-sod chloride 0.9% 1,000 ML 75 ML IV ×2 (06:44→20:21)
--- NOTE | 2022-01-31 07:46 | XRR_ITS ---
PROCEDURE INFORMATION: Exam: XR Abdomen Exam date and time: 01/31/2022 1:33 PM Age: 41 years old Clinical indication: Abdominal pain; Additional info: Impaction of feces TECHNIQUE: Imaging protocol: Radiologic exam of the abdomen. Views: Frontal supine view of the abdomen. 1 View. COMPARISON: CR (ABDOMEN, ) 01/29/2022 5:27 PM FINDINGS: Gastrointestinal tract: There are air-filled large and small bowel loops.Colonic constipation is present. There is a large amount of stool in the rectal vault raising concern for fecal impaction. Organs: Clips are present in the right upper quadrant consistent with prior cholecystectomy. Bones/joints: There are degenerative and postoperative changes in the visualized spine. XR/XR KUB portable [id number] IMPRESSION: 1. There is a large amount of stool in the rectal vault raising concern for fecal impaction. 2. There are air-filled large and small bowel loops.Colonic constipation is present.
--- NOTE | 2022-01-31 10:05 | PM.DCS ---
Discharge Providers Date of Admission: 01/30/22 14:34 Date of Discharge: January 31, 2022 Attending Provider at Admission: Eloy Redmond MD Attending Provider at Discharge: Gene Thakur MD Primary Care Provider: Akbar Pérez DO Diagnoses at Discharge Discharge Diagnosis (1) Constipation: Status: Acute Reason for Visit Reason for Visit: ABD Pain Hospital Course Hospital Course 38 female who was admitted for management of fecal impaction rectal distention was about 10 cm, he did not respond to conservative management with stool softeners hence decision was made to manually disimpact him, I disimpacted him and removed 10-15 pellets of hard stool which were about 4 to 5 cm long, disimpaction was stopped when I was not able to feel any pellets, NGT was inserted and he received 1500 mL of GoLytely which improved his small bowel fecal impaction as well he had 2-3 moderate amount of bowel movement. For his A. fib RVR he was kept on Cardizem drip, he has history of Kaylee ataxia, A. fib, on chronic anticoagulation, CHF, scoliosis, pseudobulbar palsy, restless leg syndrome, family was updated Nursing staff at the skilled nursing should be able to manually disimpact him if needed however ideally they should not wait to the point where he has to be manually disimpacted, I have added lactulose and senna S regimen Physical Exam Narrative: Patient is nonverbal Quadriplegic Abdomen is soft Nontender Bowel sound present Patient had a bowel movement this morning as well Clinically does not look fluid overloaded A. fib without RVR Hemodynamically stable Discharge Data Studies Completed and Pending Completed Studies During Hospitalization Category Date Time Status CT abdomen pelvis w con* [id number] Stat Cat Scan 01/28/22 11:50 Completed XR KUB portable [id number] Routine Exams 01/29/22 13:42 Completed XR chest 1V portable [id number] Stat Exams 01/30/22 11:00 Completed Pending at discharge Category Date Time Status XR KUB portable [id number] Routine Exams 01/31/22 07:46 Ordered Radiology Impressions Abdomen/Pelvis CT 01/28/22 11:50 IMPRESSION: 1. Massive air distention of the colon. Distention is probably due to marked fecal impaction in the distal colon. Transverse diameter of the rectum measures up to 10.3 cm. 2. No free air is identified. 3. Prior cholecystectomy. 4. Bilateral lower lobe opacifications probably due to pneumonia or pneumonitis. Consider aspiration pneumonia. KUB X-Ray 01/29/22 13:42 IMPRESSION: Severe colonic stool burden with gaseous distention of the small bowel loops. Chest X-Ray 01/30/22 11:00 Impression: Nasogastric tube probably ends in fundus of the stomach. Laboratory Results WBC 11.3 10^3/uL (4.0-10.0) H 01/29/22 05:30 RBC 3.79 10^6/uL (4.1-5.3) L 01/29/22 05:30 Hgb 12.3 g/dL (11.7-16.6) 01/29/22 05:30 Hct 36.6 % (42.0-52.0) L 01/29/22 05:30 MCV 96.6 fl (80-94) H 01/29/22 05:30 MCH 32.5 pg (28.0-34.0) 01/29/22 05:30 MCHC 33.6 g/dL (30.0-36.0) 01/29/22 05:30 RDW 14.2 % (12.1-15.1) 01/29/22 05:30 Plt Count 220 10^3/cmm (130-400) D 01/29/22 05:30 MPV 10.7 fL (7.4-10.4) H 01/29/22 05:30 Neut % (Auto) 75.8 % 01/29/22 05:30 Lymph % (Auto) 12.8 % 01/29/22 05:30 [place] % (Auto) 7.6 % 01/29/22 05:30 Eos % (Auto) 2.9 % 01/29/22 05:30 Baso % (Auto) 0.4 % 01/29/22 05:30 Neut # (Auto) 8.54 10^3/uL (1.8-7.7) H 01/29/22 05:30 Lymph # (Auto) 1.4 10^3/uL (0.8-4.8) 01/29/22 05:30 [place] # (Auto) 0.9 10^3/uL (0.2-0.9) 01/29/22 05:30 Eos # (Auto) 0.3 10^3/uL (0.0-0.8) 01/29/22 05:30 Baso # (Auto) 0.1 10^3/uL (0.0-0.1) 01/29/22 05:30 Nucleated RBC % (auto) 0 % 01/29/22 05:30 Nucleated RBCs # 0.0 /100WBC 01/29/22 05:30 Sodium 133 mmol/L (136-145) L 01/31/22 05:10 Potassium 3.7 mmol/L (3.5-5.1) 01/31/22 05:10 Chloride 101 mmol/L (98-107) 01/31/22 05:10 Carbon Dioxide 22 mmol/L (22-29) 01/31/22 05:10 Anion Gap 13.7 (5-19) 01/31/22 05:10 BUN 3 mg/dL (6-20) L 01/31/22 05:10 Creatinine 0.5 mg/dL (0.7-1.2) L 01/31/22 05:10 GFR Calculation 181.5 mL/min (90-130) H 01/31/22 05:10 Glucose 110 mg/dL (65-115) 01/31/22 05:10 Calculated Osmolality 273 mOsm/kg (285-295) L 01/31/22 05:10 Calcium 8.4 mg/dL (8.5-10.5) L 01/31/22 05:10 Magnesium 1.9 mg/dL (1.7-2.3) 01/29/22 05:30 Total Bilirubin 1.1 mg/dL (0.15-1.2) 01/28/22 11:27 AST 16 U/L (0-40) 01/28/22 11:27 ALT 16 U/L (0-41) 01/28/22 11:27 Alkaline Phosphatase 122 U/L (40-130) 01/28/22 11:27 Troponin T Baseline 22 ng/L (0-15) H 01/29/22 12:35 Troponin T 120 Minute 24.93 ng/L (0-15) H 01/29/22 15:27 Delta Troponin T 2.93 ABS# (0-10) 01/29/22 15:27 Troponin T Hi Sens 6Hr 26.76 ng/L (0-15) H 01/29/22 19:21 Troponin T Hi Sens 6Hr Delta 4.76 ng/L (0-12) 01/29/22 19:21 C-Reactive Protein 103.4 mg/L (0.0-4.9) H 01/29/22 05:30 Total Protein 7.8 g/dL (6.6-8.7) 01/28/22 11:27 Albumin 4.3 g/dL (3.5-5.2) 01/28/22 11:27 Globulin 3.5 g/dL (1.3-4.6) 01/28/22 11:27 Lipase 33 U/L (13-60) 01/28/22 11:27 TSH 1.71 uIU/mL (0.27-4.20) 01/28/22 11:27 Urine Color Yellow (Yellow) 01/30/22 06:20 Urine Appearance Clear (CLEAR) 01/30/22 06:20 Urine pH 5 (5-7) 01/30/22 06:20 Ur Specific [place] 1.020 (1.005-1.030) 01/30/22 06:20 Urine Protein Neg (Negative) 01/30/22 06:20 Urine Glucose (UA) Norm (Normal) 01/30/22 06:20 Urine Ketones 1+ (Negative) H 01/30/22 06:20 Urine Blood Neg (Negative) 01/30/22 06:20 Urine Nitrate Negative (Negative) 01/30/22 06:20 Urine Bilirubin 1+ (Negative) H 01/30/22 06:20 Urine Urobilinogen 1 mg/dL (Negative) H 01/30/22 06:20 Ur Leukocyte Esterase Negative (Negative) 01/30/22 06:20 Vitals Last Vital Signs Temp 98.0 F 01/31/22 08:00 Pulse 107 H 01/31/22 08:00 Resp 15 01/31/22 08:00 BP 117/82 01/31/22 08:00 Pulse Ox 97 01/31/22 08:00 O2 Del Method 01/31/22 08:00 O2 Flow Rate 3 01/29/22 07:52 Discharge Plan Discharge Patient Disposition: Xfer SNF Condition: Stable Prescriptions: New sennosides-docusate sodium [Senna-S] 8.6-50 mg tablet 1 tab-cap PO DAILY Qty: 60 0RF lactulose 20 gram/30 mL Solution 20 g PO Q8H PRN (Reason: Constipation) Qty: 500 0RF Continued acetaminophen 325 mg Tablet 650 mg PO Q4H PRN (Reason: Pain) lorazepam 0.5 mg Tablet 0.5 mg PO Q4H PRN (Reason: Anxiety) baclofen 10 mg Tablet 10 mg PO Q8H bisacodyl 10 mg Suppository 10 mg SD DAILY PRN (Reason: Constipation) metoprolol tartrate 50 mg Tablet 50 mg PO BID omeprazole 20 mg Capsule,Delayed Release(Dr/Ec) 20 mg PO DAILY nystatin 100,000 unit/gram Powder 1 applic TOPICAL BID PRN (Reason: Rash) Xarelto 20 mg Tablet 20 mg PO QPM tamsulosin 0.4 mg capsule 0.4 mg PO BEDTIME ondansetron 4 mg tablet,disintegrating 4 mg PO Q6H PRN (Reason: nausea and vomiting) Qty: 10 0RF senna 8.6 mg Tablet 8.6 mg PO BID PRN (Reason: Constipation) Flintstones Complete (iron) Tablet,Chewable 1 tab PO DAILY Rx Instructions: administer with a meal tramadol 50 mg Tablet 50 mg PO Q8H PRN (Reason: Pain) triamcinolone acetonide 0.1 % Cream 1 applic TOPICAL BID Vitamin D3 10 mcg (400 unit) Tablet 10 mcg PO DAILY risperidone 0.5 mg Tablet 0.5 mg PO BEDTIME Referrals: Akbar Pérez DO [Primary Care Provider] - Discharge Attestations Time Spent in Discharge Care*: less than 30 min Quality Metrics Clinical Quality Measures [ No reported AMI, CVA or VTE this stay] Coding Level of Care Code Acute Chg FW DC note Diagnoses Constipation K59.00
[2022-01-31] MEDS: glycerin adult supp 1 EACH PR (12:07)
--- NOTE | 2022-01-31 12:17 | PC.NURSE ---
notified Dr. Thakur of patient having emesis and a BM. Dr. Thakur stated not to pull NG tube until KUB results came back and to put to suction for 10 minutes then intermittent.
--- NOTE | 2022-01-31 14:04 | PM.PN ---
Subjective Subjective: <del>Patient</del> <del>seen</del> <del>and</del> <del>examined.</del> <del>3</del> <del>BMs</del> <del>plus</del> <del>emesis</del> <del>with</del> <del>1500</del> <del>cc</del> <del>GoLytely</del> Vitals/I&O/Wt Last Vital Signs Temp 97.7 F 01/31/22 11:58 Pulse 81 01/31/22 11:58 Resp 16 01/31/22 11:58 BP 118/83 01/31/22 11:58 Pulse Ox 94 01/31/22 11:58 O2 Del Method 01/31/22 11:58 O2 Flow Rate 3 01/29/22 07:52 01/30/22 01/31/22 01/31/22 22:59 06:59 14:59 Intake Total 1508.75 / 2007.75 1493.833 / 3502.583 50 / 50 Output Total Balance 1508.75 / 2007.75 1493.833 / 3502.583 49 / 49 Weight last 48 hrs Weight 137 lb 3.2 oz Weight 137 lb 1.6 oz Physical Exam Narrative: Patient is nonverbal Abdomen: Distendended, mild diffuse tenderness, no g/r/m Data : 01/29/22 05:30 01/31/22 05:10 A&P Assessment and plan (1) Constipation: Plan Recommend GoLytely drip. 1 gallon to be infused over 8 hours. 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
[2022-01-31 14:12] LABS: SARS Covid-2 Antigen negative (Negative)
--- NOTE | 2022-01-31 15:45 | P.PN_ITS ---
Subjective Subjective: Cancel my discharge orders Patient still has fecal impaction despite getting manual disimpacted and GoLytely We will give him another day with GoLytely and do manual disimpaction Vitals/I&O/Wt Last Vital Signs Temp 97.7 F 01/31/22 11:58 Pulse 81 01/31/22 11:58 Resp 16 01/31/22 11:58 BP 118/83 01/31/22 11:58 Pulse Ox 94 01/31/22 11:58 O2 Del Method 01/31/22 11:58 O2 Flow Rate 3 01/29/22 07:52 01/31/22 01/31/22 01/31/22 06:59 14:59 22:59 Intake Total 1493.833 / 3502.583 50 / 50 Output Total Balance 1493.833 / 3502.583 49 / 49 Weight last 48 hrs Weight 62.233 kg Weight 62.188 kg Physical Exam Narrative: Patient is nonverbal Quadriplegic Abdomen is soft Nontender Bowel sound present Patient had a bowel movement this morning as well Clinically does not look fluid overloaded A. 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
[2022-01-31] MEDS: peg /e-lyte soln 4,000 mL Btl 1500 ML NG-TUBE (16:15)
[2022-01-31] MEDS: ondansetron 2 mg/ML SDV 2 mL 4 MG IVP (23:04)
[2022-02-01] VITALS (7 sets, daily range): BP systolic 111–118; BP diastolic 62–89; PULSE 74–133; RESP 16–18; TEMP 36.3–36.9; O2SAT 94–96
[2022-02-01] MEDS: lactulose oral liq 20 gm/30 mL UDC PO ×3 (01:23→19:19)
--- NOTE | 2022-02-01 02:35 | XRR_ITS ---
PROCEDURE INFORMATION: Exam: XR Chest Exam date and time: 02/01/2022 2:41 AM Age: 41 years old Clinical indication: Device placement; Ng tube; Prior surgery; Surgery date: 6+ months; Surgery type: Spinal rods; Additional info: Check ng placement TECHNIQUE: Imaging protocol: Radiologic exam of the chest. Views: 1 view. COMPARISON: CR XR chest 1V portable [id number] 01/30/2022 10:57 AM FINDINGS: Tubes, catheters and devices: A nasogastric tube is placed with its tip at least in the proximal stomach. EKG leads overlie the chest. Lungs: There is mild indistinctness of the pulmonary vasculature and some subtle increased interstitial opacities present in the mid lower hemithoraces, findings that may represent mild pulmonary edema. Pleural spaces: Unremarkable. No pleural effusion. No pneumothorax. Heart/Mediastinum: The cardiac silhouette is prominent. Bones/joints: There is stable positioning of [place] Rite rods within the thoracolumbar spine. XR/XR chest 1V portable [id number] IMPRESSION: 1. Nasogastric tube tip in proximal stomach 2. Mildly prominent cardiac silhouette, mild indistinctness of the pulmonary vasculature and subtle increased interstitial opacities in the mid lower hemithoraces could represent mild pulmonary edema.
--- NOTE | 2022-02-01 07:45 | XRR_ITS ---
PROCEDURE INFORMATION: Exam: XR Abdomen Exam date and time: 02/01/2022 8:36 AM Age: 41 years old Clinical indication: Constipation; Additional info: Fecal impaction TECHNIQUE: Imaging protocol: Radiologic exam of the abdomen. Views: Frontal supine view of the abdomen. 1 View. COMPARISON: CR (ABDOMEN, ) 01/31/2022 1:33 PM FINDINGS: Gastrointestinal tract: Dilatation of large and small bowel. Air noted within the rectum. Paucity of stool. Mild stool overlying the pelvis. Organs: Soft tissue density in the pelvis presumably a filled urinary bladder. Bones/joints: Stable fixation in the spine. XR/XR KUB portable [id number] IMPRESSION: Findings suggest an ileus. Mild stool when compared to the previous examination and a possible distended urinary bladder.
--- NOTE | 2022-02-01 09:52 | P.PN_ITS ---
Subjective Subjective: Patient has had multiple bowel movements with another GoLytely He is at risk of severe constipation and re impaction, I will discuss with the general surgeon on Wednesday and discuss with the family if they would opt for any surgical intervention, like colostomy Cardizem drip stopped this morning Continue IV fluids at lower rate I have given him Lasix for mild pulm edema Vitals/I&O/Wt Last Vital Signs Temp 97.4 F L 02/01/22 07:51 Pulse 82 02/01/22 08:00 Resp 16 02/01/22 08:00 BP 111/64 02/01/22 07:51 Pulse Ox 96 02/01/22 08:00 O2 Del Method 02/01/22 08:00 O2 Flow Rate 3 01/29/22 07:52 01/31/22 02/01/22 02/01/22 22:59 06:59 14:59 Intake Total 1100 / 1150 50 / 1200 Output Total 1 / 2 2 / 4 Balance 1099 / 1148 48 / 1196 Weight last 48 hrs Weight 62.233 kg Physical Exam Narrative: Patient is nonverbal Quadriplegic Abdomen distended positive bowel sound, soft Neuro exam limited Patient opens eyes does not make eye contact does not follow commands Does not look dehydrated Lower extremity no edema Data : 01/29/22 05:30 01/31/22 05:10 A&P Assessment and plan (1) Hypokalemia: (2) Fecal impaction in rectum: (3) Constipation: Plan Severe constipation Patient has received 2 gallons of GoLytely, he has been having bowel movements in last 24 hours Fecal disimpaction has been done I have repeated his KUB Am planning to keep him here 1 more day as he is at risk of recurrence and fecal impaction, will discuss with general surgery, I am also going to talk with the family if they would offer any surgical intervention A. fib without RVR turned off Cardizem drip I can give him IV pushes of labetalol if needed Mild pulm edema, decrease the rate of fluids Continue n.p.o. 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
[2022-02-01] MEDS: FUROsemide 10 mg/mL SDV 4mL 40 MG IVP (10:09)
[2022-02-01] MEDS: enoxaparin 40 mg/0.4 mL Syringe SUBCUT (10:14)
--- NOTE | 2022-02-01 15:18 | ECG_ITS ---
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 Measurements Intervals [place] Rate: 109 P: 107 RI: 86 QRS: 173 QRSD: 98 T: -35 QT: 268 QTc: 362 Interpretive Statements ATRIAL FIBRILLATION WITH RVR RIGHT VENTRICULAR HYPERTROPHY [SOME/ALL OF: PROMINENT R IN V1, LATE TRANSITION, RAD, LANDY, SSS] Compared to ECG 01/29/2022 18:23:40 Ventricular premature complex(es) no longer present Electronically Signed On 02-01-2022 22:06:10 CDT by Leonard Ceballos M.D. [email or web address]
[2022-02-01] MEDS: dextrose 5%-sod chloride 0.9% 1,000 ML 75 ML IV (15:36)
--- NOTE | 2022-02-01 16:07 | PC.NURSE ---
Called Dr. Thakur at 1520 about patients Heart Rate bouncing all over the place. Dr. Thakur ordered an 12 Lead EKG.
--- NOTE | 2022-02-01 19:20 | PC.NURSE ---
Notified Dr. Thakur of results for EKG. Dr. Thakur stated it was Sinus Tachycardia no further orders given
[2022-02-01] MEDS: metoclopramide 5 mg/mL SDV 2 mL 10 MG IVP (20:18)
--- NOTE | 2022-02-01 20:30 | ECG_ITS ---
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 Measurements Intervals [place] Rate: 117 P: MD: QRS: 155 QRSD: 79 T: 0 QT: 294 QTc: 411 Interpretive Statements ATRIAL FLUTTER WITH RAPID VENTRICULAR RESPONSE PATTERN CONSISTENT WITH PULMONARY DISEASE RIGHT VENTRICULAR HYPERTROPHY [SOME/ALL OF: PROMINENT R IN V1, LATE TRANSITION, RAD, LANDY, SSS] MINIMAL ST DEPRESSION [0.025+ mV ST DEPRESSION] Compared to ECG 02/01/2022 15:30:03 ST (T wave) deviation now present Sinus tachycardia no longer present Short MD interval no longer present Electronically Signed On 02-01-2022 21:53:48 CDT by Leonard Ceballos M.D. [id number]
[2022-02-01] MEDS: dilTIAZem 5 mg/mL SDV 5 mL 10 MG IVP ×2 (20:54→21:57)
--- NOTE | 2022-02-01 23:00 | PC.NURSE ---
Pt had elevated heart rate starting around 2019 this evening. EKG showed aflutter. Dr. Redmond notified, pt given cardizem 10mg x2.
[2022-02-02] VITALS (7 sets, daily range): BP systolic 94–117; BP diastolic 59–81; PULSE 76–139; RESP 16–18; TEMP 36.2–37.4; O2SAT 94–96
[2022-02-02] MEDS: lactulose oral liq 20 gm/30 mL UDC PO (02:28)
--- NOTE | 2022-02-02 04:00 | XRR_ITS ---
PROCEDURE INFORMATION: Exam: XR Abdomen Exam date and time: 02/02/2022 4:00 AM Age: 41 years old Clinical indication: Other: Ileus; Prior surgery; Surgery date: 6+ months; Surgery type: Spinal rods TECHNIQUE: Imaging protocol: Radiologic exam of the abdomen. Views: Frontal supine view of the abdomen. 1 View. COMPARISON: CR (ABDOMEN, ) 02/01/2022 8:36 AM FINDINGS: Gastrointestinal tract: Unchanged mild to moderately gas distended loops of small bowel and colon are seen in the abdomen. These findings may represent adynamic ileus. Recommend correlation with bowel sound findings. Intraperitoneal space: Multiple external densities are seen overlying the abdomen, limiting assessment. Bones/joints: Postsurgical changes of the visualized thoracic and upper to mid lumbar spine are seen with Albright rods. Unchanged [id number] bilateral hip degenerative changes are seen. Soft tissues: Surgical clips are seen in the right upper quadrant of the abdomen, likely related to prior cholecystectomy. XR/XR KUB portable [id number] IMPRESSION: Unchanged mild to moderately gas distended loops of small bowel and colon in the abdomen. These findings may represent adynamic ileus. Recommend correlation with bowel sound findings.
[2022-02-02 05:22] LABS: Anion Gap 15.3 (5-19); Blood Urea Nitrogen 2 mg/dL (6-20); Calcium 8.9 mg/dL (8.5-10.5); Carbon Dioxide 26 mmol/L (22-29); Chloride 100 mmol/L (98-107); Glomerular Filtration Rate 105.5 mL/min (90-130); Glucose 79 mg/dL (65-115); Magnesium 2.2 mg/dL (1.7-2.3); Osmolality Calculated 281 mOsm/kg (285-295); Potassium 3.3 mmol/L (3.5-5.1); Sodium 138 mmol/L (136-145)
[2022-02-02] MEDS: lidocaine 1% 5 ML in potassium chloride premix 100 ML 25 ML IV (09:02)
[2022-02-02] MEDS: enoxaparin 40 mg/0.4 mL Syringe SUBCUT (09:59)
[2022-02-02] MEDS: dextrose 5%-sod chloride 0.9% 1,000 ML 75 ML IV ×2 (10:01→20:52)
--- NOTE | 2022-02-02 10:38 | PM.PN ---
Subjective Subjective: 41 YO male who was admitted for management of fecal impaction rectal distention was about 10 cm, he did not respond to conservative management with stool softeners hence decision was made to manually disimpact him, I disimpacted him and removed 10-15 pellets of hard stool which were about 4 to 5 cm long, disimpaction was stopped when I was not able to feel any pellets, NGT was inserted and he received 1500 mL of GoLytely which improved his small bowel fecal impaction as well he had 2-3 moderate amount of bowel movement.? For his A. fib RVR he was kept on Cardizem drip, he has history of Kaylee ataxia, A. fib, on chronic anticoagulation, CHF, scoliosis, pseudobulbar palsy, restless leg syndrome, family was updated Nursing staff at the senior living should be able to manually disimpact him if needed however ideally they should not wait to the point where he has to be manually disimpacted, I have added lactulose and senna S regimen Nasogastric tube was inserted to give him GoLytely, he received GoLytely for 2 days, his KUB did show improvement with another fecal impaction which was removed, he has been having frequent bowel movements throughout his hospitalization, KUB on 02/02 showing ileus however I could hear good bowel sounds and he is having regular bowel movement, decision was made to remove NG tube and feed him and plan to discharge him back to the senior living. Of note, he is at risk of getting a colostomy considering his severe recurrent fecal impactions. Vitals/I&O/Wt Last Vital Signs Temp 97.2 F L 02/02/22 08:00 Pulse 76 02/02/22 08:04 Resp 18 02/02/22 08:04 BP 114/78 02/02/22 08:00 Pulse Ox 95 02/02/22 08:04 O2 Del Method 02/02/22 08:04 O2 Flow Rate 3 01/29/22 07:52 02/01/22 02/02/22 02/02/22 22:59 06:59 14:59 Intake Total 0 / 1000 1050 / 1050 Output Total 150 / 150 Balance 0 / 1000 -150 / 850 1050 / 1050 Physical Exam Narrative: A. fib without RVR Clinically does not look fluid overloaded Awake and alert Active bowel sounds Abdomen is soft Having bowel movement at the time of my evaluation Currently on room air Nonverbal Quadriplegia Urinary Catheter Management: Magdaleno: Cath Placed During This Visit: yes Reason for Continuing Indwelling Catheter: Acute Urinary Retention or Obstruction Urinary Catheter Date of Insertion: 02/01/22 Urinary Catheter Time of Insertion: 14:00 Data : 01/29/22 05:30 02/02/22 04:39 A&P Assessment and plan (1) Hypokalemia: (2) Fecal impaction in rectum: (3) Constipation: (4) Nausea & vomiting: (5) Afib: Plan Plan to remove NG tube, feed him if he is not vomiting plan to discharge back to senior living With ileus I do believe this will resolve on its own he is having active bowel movement, bowel sounds present Hypokalemia: Repleted Magdaleno catheterbecause of urinary retention Attestations Medical Necessity Statement*: Discharge today versus tomorrow Time Spent in Patient Care: 30 Coding Level of Care Code Acute [place] Operator for [facility] Fwd Diagnoses Hypokalemia E87.6 Fecal impaction in rectum K56.41 Constipation K59.00 Nausea & vomiting R11.2 Afib I48.91
[2022-02-02 11:18] LABS: SARS Covid-2 Antigen negative (Negative)
--- NOTE | 2022-02-02 11:28 | P.PN_ITS ---
Subjective Subjective: Patient seen and examined Multiple BMs Vitals/I&O/Wt Last Vital Signs Temp 97.6 F 02/02/22 11:03 Pulse 117 H 02/02/22 11:03 Resp 18 02/02/22 11:03 BP 117/81 02/02/22 11:03 Pulse Ox 94 02/02/22 11:03 O2 Del Method 02/02/22 11:03 O2 Flow Rate 3 01/29/22 07:52 02/01/22 02/02/22 02/02/22 22:59 06:59 14:59 Intake Total 0 / 1000 1050 / 1050 Output Total 150 / 150 Balance 0 / 1000 -150 / 850 1050 / 1050 Physical Exam Narrative: Patient is nonverbal Abdomen: mildly Distendended, NT, no g/r/m Urinary Catheter Management: Magdaleno: Cath Placed During This Visit: yes Reason for Continuing Indwelling Catheter: Acute Urinary Retention or Obstruction Urinary Catheter Date of Insertion: 02/01/22 Urinary Catheter Time of Insertion: 14:00 Data : 01/29/22 05:30 02/02/22 04:39 A&P Assessment and plan (1) Constipation: Plan Regular diet No acute surgical intervention Medical management per hospitalist No acute surgical intervention Attestations Medical Necessity Statement*: Further hospitalization per hospitalist 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
--- NOTE | 2022-02-02 12:19 | PC.SOCIAL ---
Imm update Cm called all patient contacts to update IMM and was unable to reach family. Will continue to try to contact.
[2022-02-02] MEDS: metoprolol tartrate 1 mg/1 mL SDV 5 mL 5 MG IVP (23:14)
[2022-02-02 23:31] LABS: Glucose Point of Care 108 mg/dL (70-110)
[2022-02-03] VITALS: BP 91/67; PULSE 102; RESP 15; TEMP 36.3; O2SAT 91
[2022-02-03] MEDS: lactulose oral liq 20 gm/30 mL UDC PO ×2 (01:27→08:16)
[2022-02-03 04:00] VITALS: BP 119/86; PULSE 103; RESP 17; TEMP 36.3; O2SAT 96
[2022-02-03] MEDS: metoprolol tartrate 1 mg/1 mL SDV 5 mL 5 MG IVP (05:04)
[2022-02-03 05:49] LABS: Blood Urea Nitrogen 6 mg/dL (6-20); Calcium 9.3 mg/dL (8.5-10.5); Carbon Dioxide 20 mmol/L (22-29); Chloride 107 mmol/L (98-107); Glomerular Filtration Rate 105.5 mL/min (90-130); Glucose 94 mg/dL (65-115); Osmolality Calculated 289 mOsm/kg (285-295); Sodium 141 mmol/L (136-145)
[2022-02-03 05:52] LABS: Anion Gap 18.3 (5-19); Potassium 4.3 mmol/L (3.5-5.1)
[2022-02-03 08:00] VITALS: PULSE 128; RESP 15; TEMP 36.7; O2SAT 96; O2SAT 97
--- NOTE | 2022-02-03 08:02 | PM.DCS ---
Discharge Providers Date of Admission: 01/30/22 14:34 Date of Discharge: February 03, 2022 Attending Provider at Admission: Eloy Redmond MD Attending Provider at Discharge: Gene Thakur MD Primary Care Provider: Akbar Pérez DO Diagnoses at Discharge Discharge Diagnosis (1) Constipation: Status: Acute Reason for Visit Reason for Visit: ABD Pain Hospital Course Hospital Course 41 YO male who was admitted for management of fecal impaction rectal distention was about 10 cm, he did not respond to conservative management with stool softeners hence decision was made to manually disimpact him, I disimpacted him and removed 10-15 pellets of hard stool which were about 4 to 5 cm long, disimpaction was stopped when I was not able to feel any pellets, NGT was inserted and he received 1500 mL of GoLytely which improved his small bowel fecal impaction as well he had 2-3 moderate amount of bowel movement.? For his A. fib RVR he was kept on Cardizem drip, he has history of Kaylee ataxia, A. fib, on chronic anticoagulation, CHF, scoliosis, pseudobulbar palsy, restless leg syndrome, family was updated Nursing staff at the shelter should be able to manually disimpact him if needed however ideally they should not wait to the point where he has to be manually disimpacted, I have added lactulose and senna S regimen Nasogastric tube was inserted to give him GoLytely, he received GoLytely for 2 days, his KUB did show improvement with another fecal impaction which was removed, he has been having frequent bowel movements throughout his hospitalization, KUB on 02/02 showing ileus however I could hear good bowel sounds and he is having regular bowel movement, decision was made to remove NG tube and feed him and plan to discharge him back to the shelter. Of note, he is at risk of getting a colostomy considering his severe recurrent fecal impactions. For his A. fib RVR required Cardizem drip on and off at the time of discharge his heart rate was also high I have given him Cardizem 10 mg IV push and resume his metoprolol 100 mg twice daily He is at risk of recurrent A. fib RVR episodes I will add Cardizem 120 mg extended dose Patient is DNR/DNI family was updated Will remove Magdaleno catheter before discharge that was inserted because of urinary retention due to excessive fecal impaction Physical Exam Narrative: Soft abdomen Bowel sound present Patient is able to tolerate diet A. fib Variable S1-S2 Clinically looks euvolemic Magdaleno catheter will be removed before discharge Urinary Catheter Management: Magdaleno: Cath Placed During This Visit: yes Reason for Continuing Indwelling Catheter: Accurate Measurement of Urinary Output in Critically Ill Patients Urinary Catheter Date of Insertion: 02/01/22 Urinary Catheter Time of Insertion: 14:00 Discharge Data Studies Completed and Pending Completed Studies During Hospitalization Category Date Time Status CT abdomen pelvis w con* [id number] Stat Cat Scan 01/28/22 11:50 Completed XR KUB portable [id number] Routine Exams 01/29/22 13:42 Completed XR KUB portable [id number] Routine Exams 01/31/22 07:46 Completed XR KUB portable [id number] Routine Exams 02/02/22 04:00 Completed XR KUB portable [id number] Stat Exams 02/01/22 07:45 Completed XR chest 1V portable [id number] Stat Exams 01/30/22 11:00 Completed XR chest 1V portable [id number] Stat Exams 02/01/22 02:35 Completed Radiology Impressions Abdomen/Pelvis CT 01/28/22 11:50 IMPRESSION: 1. Massive air distention of the colon. Distention is probably due to marked fecal impaction in the distal colon. Transverse diameter of the rectum measures up to 10.3 cm. 2. No free air is identified. 3. Prior cholecystectomy. 4. Bilateral lower lobe opacifications probably due to pneumonia or pneumonitis. Consider aspiration pneumonia. Chest X-Ray 02/01/22 02:35 IMPRESSION: 1. Nasogastric tube tip in proximal stomach 2. Mildly prominent cardiac silhouette, mild indistinctness of the pulmonary vasculature and subtle increased interstitial opacities in the mid lower hemithoraces could represent mild pulmonary edema. KUB X-Ray 02/02/22 04:00 IMPRESSION: Unchanged mild to moderately gas distended loops of small bowel and colon in the abdomen. These findings may represent adynamic ileus. Recommend correlation with bowel sound findings. Laboratory Results WBC 11.3 10^3/uL (4.0-10.0) H 01/29/22 05:30 RBC 3.79 10^6/uL (4.1-5.3) L 01/29/22 05:30 Hgb 12.3 g/dL (11.7-16.6) 01/29/22 05:30 Hct 36.6 % (42.0-52.0) L 01/29/22 05:30 MCV 96.6 fl (80-94) H 01/29/22 05:30 MCH 32.5 pg (28.0-34.0) 01/29/22 05:30 MCHC 33.6 g/dL (30.0-36.0) 01/29/22 05:30 RDW 14.2 % (12.1-15.1) 01/29/22 05:30 Plt Count 220 10^3/cmm (130-400) D 01/29/22 05:30 MPV 10.7 fL (7.4-10.4) H 01/29/22 05:30 Neut % (Auto) 75.8 % 01/29/22 05:30 Lymph % (Auto) 12.8 % 01/29/22 05:30 [place] % (Auto) 7.6 % 01/29/22 05:30 Eos % (Auto) 2.9 % 01/29/22 05:30 Baso % (Auto) 0.4 % 01/29/22 05:30 Neut # (Auto) 8.54 10^3/uL (1.8-7.7) H 01/29/22 05:30 Lymph # (Auto) 1.4 10^3/uL (0.8-4.8) 01/29/22 05:30 [place] # (Auto) 0.9 10^3/uL (0.2-0.9) 01/29/22 05:30 Eos # (Auto) 0.3 10^3/uL (0.0-0.8) 01/29/22 05:30 Baso # (Auto) 0.1 10^3/uL (0.0-0.1) 01/29/22 05:30 Nucleated RBC % (auto) 0 % 01/29/22 05:30 Nucleated RBCs # 0.0 /100WBC 01/29/22 05:30 Sodium 141 mmol/L (136-145) 02/03/22 05:04 Potassium 4.3 mmol/L (3.5-5.1) 02/03/22 05:04 Chloride 107 mmol/L (98-107) 02/03/22 05:04 Carbon Dioxide 20 mmol/L (22-29) L 02/03/22 05:04 Anion Gap 18.3 (5-19) 02/03/22 05:04 BUN 6 mg/dL (6-20) 02/03/22 05:04 Creatinine 0.8 mg/dL (0.7-1.2) 02/03/22 05:04 GFR Calculation 105.5 mL/min (90-130) 02/03/22 05:04 Glucose 94 mg/dL (65-115) 02/03/22 05:04 POC Glucose 108 mg/dL (70-110) 02/02/22 23:28 Calculated Osmolality 289 mOsm/kg (285-295) 02/03/22 05:04 Calcium 9.3 mg/dL (8.5-10.5) 02/03/22 05:04 Magnesium 2.2 mg/dL (1.7-2.3) 02/02/22 04:39 Total Bilirubin 1.1 mg/dL (0.15-1.2) 01/28/22 11:27 AST 16 U/L (0-40) 01/28/22 11:27 ALT 16 U/L (0-41) 01/28/22 11:27 Alkaline Phosphatase 122 U/L (40-130) 01/28/22 11:27 Troponin T Baseline 22 ng/L (0-15) H 01/29/22 12:35 Troponin T 120 Minute 24.93 ng/L (0-15) H 01/29/22 15:27 Delta Troponin T 2.93 ABS# (0-10) 01/29/22 15:27 Troponin T Hi Sens 6Hr 26.76 ng/L (0-15) H 01/29/22 19:21 Troponin T Hi Sens 6Hr Delta 4.76 ng/L (0-12) 01/29/22 19:21 C-Reactive Protein 103.4 mg/L (0.0-4.9) H 01/29/22 05:30 Total Protein 7.8 g/dL (6.6-8.7) 01/28/22 11:27 Albumin 4.3 g/dL (3.5-5.2) 01/28/22 11:27 Globulin 3.5 g/dL (1.3-4.6) 01/28/22 11:27 Lipase 33 U/L (13-60) 01/28/22 11:27 TSH 1.71 uIU/mL (0.27-4.20) 01/28/22 11:27 Urine Color Yellow (Yellow) 01/30/22 06:20 Urine Appearance Clear (CLEAR) 01/30/22 06:20 Urine pH 5 (5-7) 01/30/22 06:20 Ur Specific Clifford 1.020 (1.005-1.030) 01/30/22 06:20 Urine Protein Neg (Negative) 01/30/22 06:20 Urine Glucose (UA) Norm (Normal) 01/30/22 06:20 Urine Ketones 1+ (Negative) H 01/30/22 06:20 Urine Blood Neg (Negative) 01/30/22 06:20 Urine Nitrate Negative (Negative) 01/30/22 06:20 Urine Bilirubin 1+ (Negative) H 01/30/22 06:20 Urine Urobilinogen 1 mg/dL (Negative) H 01/30/22 06:20 Ur Leukocyte Esterase Negative (Negative) 01/30/22 06:20 SARS-CoV-2 Ag (Rapid) negative (Negative) 02/02/22 10:35 Vitals Last Vital Signs Temp 97.3 F L 02/03/22 04:00 Pulse 103 H 02/03/22 04:00 Resp 17 02/03/22 04:00 BP 119/86 02/03/22 04:00 Pulse Ox 96 02/03/22 04:00 O2 Del Method 02/02/22 20:00 O2 Flow Rate 3 01/29/22 07:52 Discharge Plan Discharge Patient Disposition: Xfer SNF Condition: Stable Prescriptions: New lactulose 20 gram/30 mL Solution 20 g PO Q8H PRN (Reason: Constipation) Qty: 500 0RF Senna-S 8.6-50 mg tablet 1 tab-cap PO DAILY Qty: 60 0RF Cardizem LA 120 mg tablet extended release 24 hr 120 mg PO DAILY Qty: 90 2RF Continued acetaminophen 325 mg Tablet 650 mg PO Q4H PRN (Reason: Pain) lorazepam 0.5 mg Tablet 0.5 mg PO Q4H PRN (Reason: Anxiety) baclofen 10 mg Tablet 10 mg PO Q8H bisacodyl 10 mg Suppository 10 mg [place] DAILY PRN (Reason: Constipation) metoprolol tartrate 50 mg Tablet 50 mg PO BID omeprazole 20 mg Capsule,Delayed Release(Dr/Ec) 20 mg PO DAILY nystatin 100,000 unit/gram Powder 1 applic TOPICAL BID PRN (Reason: Rash) Xarelto 20 mg Tablet 20 mg PO QPM tamsulosin 0.4 mg capsule 0.4 mg PO BEDTIME ondansetron 4 mg tablet,disintegrating 4 mg PO Q6H PRN (Reason: nausea and vomiting) Qty: 10 0RF senna 8.6 mg Tablet 8.6 mg PO BID PRN (Reason: Constipation) Flintstones Complete (iron) Tablet,Chewable 1 tab PO DAILY Rx Instructions: administer with a meal tramadol 50 mg Tablet 50 mg PO Q8H PRN (Reason: Pain) triamcinolone acetonide 0.1 % Cream 1 applic TOPICAL BID Vitamin D3 10 mcg (400 unit) Tablet 10 mcg PO DAILY risperidone 0.5 mg Tablet 0.5 mg PO BEDTIME Discharge Orders: Discharge Order (Routine); Ordered 02/03/22 Ordered By: Gene Thakur Referrals: [facility] [Outside] Akbar Pérez DO [Primary Care Provider] - Patient Instructions: Laxative, Stool Softeners (By mouth), Lactulose (By mouth), A-fib (Atrial Fibrillation) (GEN), Constipation (GEN) Discharge Attestations Time Spent in Discharge Care*: less than 30 min Quality Metrics Clinical Quality Measures [ No reported AMI, CVA or VTE this stay] Coding Level of Care Code Acute Chg FW DC note Diagnoses Constipation K59.00
[2022-02-03 08:16] VITALS: BP 116/78
[2022-02-03] MEDS: dilTIAZem 5 mg/mL SDV 5 mL 10 MG IVP (09:40)
[2022-02-03] MEDS: enoxaparin 40 mg/0.4 mL Syringe SUBCUT (09:41)
[2022-02-03] MEDS: metoprolol tartrate 50 mg Tablet 100 MG PO (10:07)
[2022-02-03 11:38] VITALS: BP 102/77; PULSE 51; RESP 15; TEMP 36.8; O2SAT 97
[2022-02-03 13:01] VITALS: BP 102/77; PULSE 51; RESP 15; TEMP 36.8; O2SAT 97
== END 2022-02-03 13:02 | disposition skilled nursing facility (03) | DRG 389 ==
LOC: ER 13:24 → MEDSURG 01-29 01:38
PROVIDERS: Admitting Provider Internal Medicine; Emergency Provider Emergency Medicine; PCP Internal Medicine; Visit Provider Internal Medicine
DX: K56.41 Fecal impaction (principal); G11.11 Friedreich ataxia; G12.29 Other motor neuron disease; G82.20 Paraplegia, unspecified; K59.39 Other megacolon; I50.20 Unspecified systolic (congestive) heart failure; I48.91 Unspecified atrial fibrillation; N32.89 Other specified disorders of bladder; R33.8 Other retention of urine; M41.9 Scoliosis, unspecified; G25.81 Restless legs syndrome; R11.2 Nausea with vomiting, unspecified; E87.6 Hypokalemia; Z66 Do not resuscitate; Z79.01 Long term (current) use of anticoagulants; Z79.899 Other long term (current) drug therapy; Z74.01 Bed confinement status; Z90.49 Acquired absence of other specified parts of digestive tract
CPT/HCPCS: 36415; 36416; 51702; 71045; 74018; 74177; 80048; 80053; 81003; 82962; 83690; 83735; 84443; 84484; 85025; 86140; 87426; 92523; 92526; 92610; 93005; 96365; 96366; 96367; 96372; 96375; 99285; G0378; J0456; J0696; J1650; J1940; J2212; J2270; J2405; J2765; J3480; J3490; J7050; Q9967